=== PATIENT | female | born 1945 | race Caucasian/White ===

== ENCOUNTER → 2016-03-18 | Outpatient (CLI) | payer OTHER ==
[2016-03-18 14:25] LABS: HEMATOCRIT 42.6 % (37.0-47.0); HEMOGLOBIN 13.8 g/dL (12.0-16.0); MEAN CORPUSCULAR HEMOGLOBIN 34.2 PG (27-31); MEAN CORPUSCULAR HGB CONC 32.4 g/dL (33-37); MEAN PLATELET VOLUME 8.7 FL (7.4-12.2); RDW COEFFICIENT OF VARIATION 12.1 % (11.5-14.5); RED BLOOD COUNT 4.04 10^6/uL (4.20-5.40); WHITE BLOOD COUNT 7.13 10^3/uL (4.8-10.8)
[2016-03-18 15:19] LABS: BUN/CREATININE RATIO 13.75 (6-20); CALCIUM 9.4 mg/dL (8.7-10.7); CREATININE 0.8 mg/dL (0.50-1.20); LDL CHOLESTEROL,CALCULATED 70.6 mg/dL; POTASSIUM 4.2 meq/L (3.8-5.2)
== END ==
LOC: LAB 14:11
PROVIDERS: ATTEND Nurse Practitioner Family
DX: E78.00 Pure hypercholesterolemia, unspecified (principal); R53.83 Other fatigue
CPT/HCPCS: 36415; 80048; 80061; 84443; 85027

== ENCOUNTER → 2016-03-21 | Outpatient (CLI) | payer OTHER ==
--- NOTE | 2016-03-21 11:22 | DI ---
US CAROTIDS B/L,03/21/2016 8:58 AM: Clinical History: Carotid bruit Previous Exam: None at this facility. Findings: Multiple grayscale and color Doppler sonographic images are obtained through the carotid systems bila terally demonstrating shadowing plaque within the carotid bulbs bilaterally extending into the sports management intern al carotid arteries. This is worse on the right than the left. There is no elevated peak systolic velocity. There is some spectral broadening seen within the internal carotid artery. The ICA/CCA ratio measured 1.3 mL is antegrade flow within the vertebral arteries. The left carotid system demonstrates no elevated peak systolic velocity. The ICA/CCA ratio measured 1.3 and there is antegrade flow within the vertebral arteries. Impression: Peripheral vascular disease within the carotid bulbs without any hemodynamically significant stenosis .
== END ==
LOC: US 08:53
PROVIDERS: ATTEND Nurse Practitioner Family
DX: R01.1 Cardiac murmur, unspecified (principal); I73.89 Other specified peripheral vascular diseases
CPT/HCPCS: 93880

== ENCOUNTER → 2016-03-24 | Outpatient (CLI) | payer OTHER | LOC: LAB 08:38 | PROVIDERS: ATTEND Nurse Practitioner Family | DX: D53.9 Nutritional anemia, unspecified (principal) | CPT/HCPCS: 36415; 82607; 82746 ==

== ENCOUNTER → 2016-05-16 | Outpatient (CLI) | payer OTHER | LOC: LAB 10:19 | PROVIDERS: ATTEND Nurse Practitioner Family | DX: S71.111A Laceration without foreign body, right thigh, initial encounter (principal); R21 Rash and other nonspecific skin eruption | CPT/HCPCS: 87070; 87205; 87529 ==

== ENCOUNTER → 2016-07-19 | Outpatient (CLI) | payer OTHER ==
[2016-07-19 10:53] LABS: BUN/CREATININE RATIO 17.77 (6-20); CALCIUM 9.3 mg/dL (8.7-10.7); CHOL/HDL RATIO 3.79 RATIO (0-4.0); LDL CHOLESTEROL,CALCULATED 51.8 mg/dL; SERUM ALBUMIN 4.5 g/dL (3.5-4.8)
== END ==
LOC: LAB 10:31
PROVIDERS: ATTEND Obstetrics & Gynecology Gynecology
DX: E78.5 Hyperlipidemia, unspecified (principal); K21.9 Gastro-esophageal reflux disease without esophagitis; I10 Essential (primary) hypertension
CPT/HCPCS: 36415; 80053; 80061

== ENCOUNTER 2016-08-22 06:10 | Emergency (ER) | payer OTHER ==
[2016-08-22] MEDS ORDERED: diphenhydrAMINE 50 MG/1 ML VIAL IVP ONE (06:43)
[2016-08-22] MEDS ORDERED: Sodium Chloride 0.9% 1,000 ML PRIMARY IV ONE (06:43)
[2016-08-22] MEDS ORDERED: DEXAMETHASONE PF 10 MG/1 ML VIAL IV ONE (06:43)
[2016-08-22] MEDS ORDERED: Magnesium Sulfate 1gm (Premix) 1 GM in Dextrose 1 BAG IV ONE (06:43)
[2016-08-22] MEDS ORDERED: Acetaminophen 1000mg Inj 1,000 MG in Premix 1 BAG IV ONE (06:43)
[2016-08-22] MEDS ORDERED: Prochlorperazine Edisylate Inj 10mg/2ml vial IVP ONE (06:43)
[2016-08-22 06:49] VITALS: TEMP 96.3
--- NOTE | 2016-08-22 06:52 | PDOC ---
Headache HPI - General Chief Complaint: Cough / URI Stated Complaint: lt. head congestion Date Seen by Provider: 08/22/16 Time Seen by Provider: 06:46 Source: POSITIVE: Patient Exam Limitations: POSITIVE: No limitations Nurse's Notes Reviewed & Considered: Yes - History of Present Illness Initial Comments: Very pleasant 71-year-old female with a chief complaint of left-sided headache and maxillofacial sinus pain. Patient has had escalating left-sided sinus pain and headache for one week. She states the pain is now interfering with her activities of daily living. She denies any rhinorrhea, no foul odor, and no vision changes. She does have a headache, denies any sore throat, no chest pain or shortness of breath, no fever chills or sweats, no nausea vomiting or diarrhea, no abdominal pain, no hematuria dysuria, no rashes. She denies any dizziness or loss of balance, no unilateral weakness. Body Location Affected: REPORTS: Head, Face Timing: REPORTS: Gradual, Getting Worse Duration: >1 week Severity: Severe Quality: REPORTS: "Pain", Pressure Exacerbated by: REPORTS: Movement Any Prior Injuries Related to Current Complaint?: No - Patient Home Medications Home Medications: Home Medications Metoprolol Succinate 200 mg PO HS 05/23/11 Naproxen Sodium [Aleve] 440 mg PO PRN PRN 05/23/11 Ramipril [ALTACE] 10 mg PO HS 05/23/11 Simvastatin 40 mg PO HS 05/23/11 Aspirin [Aspir 81] 81 mg PO DAILY 10/13/13 Cholecalciferol (Vitamin D3) [Vitamin D] 1,000 unit PO DAILY 10/13/13 Folic Acid [Folvite Tab] 3,200 mg PO DAILY 10/13/13 Gabapentin [Neurontin Cap] 300 mg PO TID 10/13/13 Prochlorperazine Maleate [Compazine] 10 mg PO Q12H PRN 08/10/15 oxyCODONE/APAP 5/325 Tab [Percocet 5/325 Tab] 1 tab PO Q6H PRN 08/10/15 Ondansetron [Zofran Odt] 1 tab-cap PO q6-8 PRN #20 tab 09/01/15 Cyanocobalamin Inj [Vitamin B-12 Inj] 1,000 mcg IM MONTHLY 08/22/16 Lorazepam [Ativan] 0.5 mg PO TID PRN 08/22/16 Magnesium 250 mg PO DAILY 08/22/16 Tumeric Curcumin 1 tab PO DAILY 08/22/16 - Patient Allergies Allergies/Adverse Reactions: Allergies Allergy/AdvReac Type Severity Reaction Status Date / Time azithromycin Allergy NOT Verified 08/22/16 06:53 APPLICABLE pregabalin [From Lyrica] Allergy NOT Verified 08/22/16 06:53 APPLICABLE Past Medical History - heen HEENT History: Denies History Cardiovascular History: Hypertension, Hyperlipidemia Respiratory History: Denies History Gastrointestinal History: GERD, Gallbladder Disease Additional Gastrointestinal History: KERI, APPY Genitourinary History: Denies History Endocrine History: Denies History Musculoskeletal History: Back Pain Prosthesis or Implant: No Additional Musculoskeletal History: OF 03/14/12 PT HAS HAD 8 EPIDURALS FOR BULGING DISCS L5-S1, RHIZOTOMY, NERVE BLOCK. LEFT KNEE PAIN Neurological History: Denies History Blood Disorders: Denies History Psychiatric History: Denies History History of Sexually Transmitted Diseases: No Cancer History: Skin History of MDRO: No History of Other Communicable Diseases: No Alcohol Use: None Substance Use Type: None Previous Surgical History: Yes Type / Date of Surgery: CHOLECYSTECTOMY, APPENDECTOMY, TONSILLECTOMY, x4, LEFT KNEE SCOPE Anesthesia Reactions: No Malignant Hyperthermia: No ROS - Limitations ROS Limitations: No Limitations Constitution: REPORTS: Denies Symptoms Cardiovascular: REPORTS: Denies Cardiac Symptoms Respiratory: REPORTS: Denies Resp Symptoms Neurological: REPORTS: Headache Gastrointestinal: REPORTS: Denies GI Symptoms Endocrine: REPORTS: Denies Symptoms Musculoskeletal: REPORTS: Denies MS Symptoms Genitourinary: REPORTS: Denies Symptoms Eyes: REPORTS: Eye Pain (Left eye pain with ocular motion.) ENT: REPORTS: Denies Symptoms Skin: REPORTS: Denies Skin Symptoms Lympathic: REPORTS: Denies Lympathic Symptoms Immunologic: POSITIVE: Denies Symptoms Psychiatric: POSITIVE: Denies Psych Symptoms Headache Exam - General Appearance General Appearance: POSITIVE: Alert, Cooperative, No Evidence of Trauma, Moderate Distress - HEENT Head / Face: POSITIVE: Atraumatic, Normal Inspection, No Facial Swelling Eyes: POSITIVE: Inspection Normal, PERRL, EOM's Intact, Eyelids Uninjured, Conjunctivae Uninjured, No Nystagmus, No Globe Trauma, Sclera Normal Ears: POSITIVE: Ears Normal Inspection, Auricle Normal Nose: POSITIVE: Inspection Normal, No Apparent Trauma, Nares Normal, No CSF Leak Oropharynx: POSITIVE: External Inspection Nml, Pharynx Inspect. Nml, Airway Intact, Voice Normal, Moist Mucous Membranes, No Oral Injury, Lips Normal, Gums Normal, No Drooling, No Thrush Dental: POSITIVE: No Dental Injury - Pupil Size Pupil Size: 5 mm: Bilateral - Neck Neck: POSITIVE: Normal Inspection, Supple - Respiratory / CVS Respiratory / CVS: POSITIVE: Chest Non-Tender, No Respiratory Distress, Heart Sounds Normal, Regular Rate/Rhythm, Breath Sounds Normal - Abdomen Abdomen: Soft: (All Quadrants), Normal Bowel Sounds: (All Quadrants), Denies Tenderness: (All Quadrants), No Splenomegaly: (All Quadrants), No Hepatomegaly: (All Quadrants), No Guarding: (All Quadrants), No Rebound: (All Quadrants), No Palpable Pulse: (All Quadrants), No Palpabale Mass: (All Quadrants), No Distention: (All Quadrants), No Rigidity: (All Quadrants) - Skin Skin: POSITIVE: Intact, Normal Palpation - Extremities Extremity: Non-Tender: (All Extremities), Normal ROM: (All Extremities), Normal Inspection: (All Extremities), Pelvis Stable: (All Extremities) - Neuro / Psych Higher Functions: POSITIVE: Alert, Oriented x3, Normal Speech, Mood Appropriate , Affect Appropriate Cranial Nerves: POSITIVE: Normal As Tested, No Evidence of Acute CVA Cerebellar: POSITIVE: Normal As Tested Sensorimotor: POSITIVE: No Motor Deficits, No Sensory Deficits, Reflexes Normal Reflexes: Radial (R): 4+, Radial (L): 4+ Headache Progress - Results Reviewed by me Xrays/CTs/US Reviewed by me: Yes Discussed with Radiologist: Yes Lab Results Reviewed: Yes Lab Results:: Laboratory Results 08/22/16 Range/Units 07:00 WBC 8.33 (4.8-10.8) 10^3/uL RBC 3.98 L (4.20-5.40) 10^6/uL Hgb 13.8 (12.0-16.0) g/dL Hct 40.9 (37.0-47.0) % MCV 102.8 H (81-99) FL MCH 34.7 H (27-31) PG MCHC 33.7 (33-37) g/dL RDW Std Deviation 44.6 (39-50) fL RDW Coeff of Juan 11.9 (11.5-14.5) % Plt Count 281 (140-350) 10*3/uL MPV 9.3 (7.4-12.2) FL Immature Gran % (Auto) 0.2 (0-5) % Neut % (Auto) 68.7 (50-80) % Lymph % (Auto) 16.4 (10-50) % Titus % (Auto) 12.4 (5-15) % Eos % (Auto) 1.9 (0-8) % Baso % (Auto) 0.4 (0-1) % Immature Gran # (Auto) 0.02 10*3/UL Neut # (Auto) 5.72 10*3/UL Lymph # (Auto) 1.37 10*3/uL Titus # (Auto) 1.03 H (0.3-0.8) 10*3/UL Eos # (Auto) 0.16 10*3/UL Baso # (Auto) 0.03 10*3/UL WBC Morphology Comment Normal morphology (NORM) Plt Morphology Comment Normal morphology (NORM) RBC Morph Comment Normal morphology (NORM) PT 10.1 (9.7-11.4) secs INR 0.95 (0.00-5.90) N/A Sodium 142 (135-145) meq/L Potassium 4.1 (3.8-5.2) meq/L Chloride 105 (98-112) meq/L Carbon Dioxide 24 (23-33) meq/L Anion Gap 13 (5-20) BUN 9 (7-22) mg/dL Creatinine 0.6 (0.50-1.20) mg/dL Estimated GFR (>60 ml/min/1.73m(2)) BUN/Creatinine Ratio 15.00 (6-20) Glucose 109 (78-110) mg/dL Calculated Osmolality 293.0 H (267-292) mOsm/kg Calcium 9.7 (8.7-10.7) mg/dL Magnesium 2.0 (1.6-2.4) mg/dL Total Bilirubin 0.7 (0.3-1.2) mg/dL AST 21 (8-39) IU/L ALT 25 (9-52) IU/L Alkaline Phosphatase 51 (38-126) IU/L C-Reactive Protein 2.4 H (0.0-0.9) mg/dL Total Protein 7.6 (6.1-8.0) g/dL Albumin 4.4 (3.5-4.8) g/dL Globulin 3.3 (2.50-4.10) g/dL Albumin/Globulin Ratio 1.30 (1.3-2.0) mg/g - Patient's Progress Pain Medication Addressed: POSITIVE: Yes Re-Examine Time:: 08:52 Status: POSITIVE: Improved MDM / ED Course: Patient was evaluated, IV started, blood drawn and sent to the lab for studies, radiographic examination was obtained. ER course: Patient received an IV start with a liter of normal saline at 125 mL per hour, IV Tylenol, dexamethasone, magnesium, Benadryl, and Compazine. Her headache did improve. Findings: CBC is unremarkable, comprehensive metabolic panel is unremarkable, CRP is elevated over 2. CT scan maxillofacial shows no sinus disease area CT scan of her head shows no acute intracranial abnormalities. Assessment: Headache, improved. Plan: Discharge home, improve hydration particularly with our hot weather currently. Follow-up with primary care physician calling this afternoon for an appointment. - Consult Counseled: POSITIVE: Patient, Family, RE: Lab Results, RE: Radiology Results, RE : DX, RE: Need for F/U Patient Care Time - Estimated PCT Patient Care Time (In Minutes): 45 Vital Signs - Recent Vital Signs Vital Signs: Vital Signs (Last 8 hours) Temp Pulse Resp BP Pulse Ox 08/22/16 08:39 65 14 128/83 95 08/22/16 07:30 65 14 94 08/22/16 07:15 67 14 146/84 95 08/22/16 07:09 70 16 149/84 96 08/22/16 06:27 96.3 F L 71 16 162/81 95 - VS Reviewed Vital Signs Reviewed: Yes Discharge Clinical Impression: Headache Discharge Disposition: Discharged to Home Condition: Stable Patient Instructions Given at Discharge: General Headache (ED)
[2016-08-22] MEDS ORDERED: Magnesium Sulfate 1gm (Premix) 100 ML IV ONE (07:01)
[2016-08-22 07:20] LABS: BASOPHILS # (AUTO) 0.03 10*3/UL; BASOPHILS % (AUTO) 0.4 % (0-1); EOSINOPHILS # (AUTO) 0.16 10*3/UL; EOSINOPHILS % (AUTO) 1.9 % (0-8); HEMATOCRIT 40.9 % (37.0-47.0); HEMOGLOBIN 13.8 g/dL (12.0-16.0); LYMPHOCYTES # (AUTO) 1.37 10*3/uL; MEAN CORPUSCULAR HEMOGLOBIN 34.7 PG (27-31); MEAN CORPUSCULAR HGB CONC 33.7 g/dL (33-37); MEAN CORPUSCULAR VOLUME 102.8 FL (81-99); MEAN PLATELET VOLUME 9.3 FL (7.4-12.2); MONOCYTES # (AUTO) 1.03 10*3/UL (0.3-0.8); MONOCYTES % (AUTO) 12.4 % (5-15); NEUTROPHILS # (AUTO) 5.72 10*3/UL; NEUTROPHILS % (AUTO) 68.7 % (50-80); PLATELET MORPHOLOGY COMMENT NORMAL MORPHOLOGY (NORM); RBC MORPHOLOGY COMMENT NORMAL MORPHOLOGY (NORM); RED BLOOD COUNT 3.98 10^6/uL (4.20-5.40); WBC MORPHOLOGY COMMENT NORMAL MORPHOLOGY (NORM)
[2016-08-22 07:30] LABS: C-REACTIVE PROTEIN 2.4 mg/dL (0.0-0.9); CALCIUM 9.7 mg/dL (8.7-10.7); SERUM ALBUMIN 4.4 g/dL (3.5-4.8)
[2016-08-22 07:36] VITALS: RESP 14
--- NOTE | 2016-08-22 08:39 | DI ---
CT HEAD SCAN WITHOUT IV CONTRAST, 08/22/2016 6:43 AM : Clinical History: Headache. Previous Exam: None at this facility. Scans are obtained from the foramen magnum to the vertex without IV contrast. The 4th, 3rd, and lateral ventricles are of normal size, shape, position, and contour for the patient 's age. There are no abnormal areas of increased or decreased density. There is no evidence of an acu te hemorrhagic or bland infarct. There is moderate cerebellar and cerebral atrophy appropriate for th e patient's age. There are no extracerebral mantles or shift of the midline structures. Bone window e valuation is normal. The paranasal sinuses are normal. READIN. There is no evidence of an acute hemorrhagic or bland infarct. 2. Moderate cerebellar and cerebral atrophy.
--- NOTE | 2016-08-22 08:51 | DI ---
CT SCAN OF THE FACE WITHOUT AND WITH IV CONTRAST, 08/22/2016 6:43 AM : Clinical History: Maxillary and frontal sinus pain on the left side. Previous Exam: None at this facility. Scans are obtained from the upper neck to above the frontal sinuses without and with IV contrast. 65 ml of Isovue 300 was injected IV. The facial bones are normal. There is no facial soft tissue swelling or abnormal enhancing lesion. Th ere is no extraconal or intraconal abnormality on either side. No facial soft tissue mass is present. No lymphadenopathy is identified. The submandibular and the parotid glands are normal. The thyroid gland is not included in the field of interest. There are calcified plaques in the proximal right int ernal carotid artery and the origin of the right external carotid artery has a high-grade stenosis. S mall calcified plaques are present in the left carotid bulb and the proximal internal carotid artery with a mild stenosis of the origin of the left external carotid artery. The internal carotid arteries from their origins to the cavernous portions are normal. Both vertebral arteries are normal and they are codominant. There is no basilar tip aneurysm. No posterior communicating arteries are identified . The anterior communicating artery and the A1-A3 and M1-and M3 branches bilaterally are normal. The paranasal sinuses and the ostiomeatal complex are normal with the exception of small ronnie bullosa i n the middle turbinates. Scans through the temporal bones and mastoid air cells are normal. READING: Normal CT scan of the face without and with IV contrast. There is no evidence of sinusitis and the fa cial bones and soft tissues are normal.
== END 2016-08-22 09:30 | disposition home or self-care (01) ==
LOC: ER 06:10
DX: R51 Headache (principal); H57.12 Ocular pain, left eye; I10 Essential (primary) hypertension; E78.5 Hyperlipidemia, unspecified; Z79.82 Long term (current) use of aspirin
CPT/HCPCS: 70450; 70488; 80053; 83735; 85025; 85610; 86140; 96365; 96375; 99283 ×2; J0131; J0780; J1200; J1100; J3475; J7030

== ENCOUNTER 2018-06-01 09:04 | Observation (INO) ==
--- NOTE | 2018-06-01 09:40 | PDOC ---
General Adult HPI - General Chief Complaint: Neurological Complaints Stated Complaint: memory loss, walks funny, vomiting Date Seen by Provider: 06/01/18 Time Seen by Provider: 09:32 Source: POSITIVE: Patient, Spouse Exam Limitations: POSITIVE: Clinical condition Nurse's Notes Reviewed & Considered: Yes - History of Present Illness Initial Comment: This is a well-developed, well-nourished, 72-year-old female, who is brought in by her for confusion. Patient is confused and having difficult time remembering why she is here however she is able to correctly identify the date, the place, her date. Patient has had a headache, vomiting, abdominal pain, and recent esophageal dilatation. states that her symptoms began yesterday, that she called out to him during the night because of vomiting, and have gotten worse today. Presently she denies any fever chills or sweats, her headache is resolved, at this time she denies any nausea vomiting or diarrhea, no chest pain, no cough, no shortness of breath, no hematuria or dysuria. states that she has been having episodes of diarrhea yesterday. Have you received a tetanus shot in the past 10 years?: Yes Body Location Affected: REPORTS: Head, Chest, Abdomen Timing: REPORTS: Unknown Duration: Unknown Severity: Severe Quality: REPORTS: "Pain" Context: REPORTS: Recent Surgery Modifying Factors: improves with: Nothing Similar Symptoms Previously: No Recent Care Received: REPORTS: Surgery Any Prior Injuries Related to Current Complaint?: No - Patient Home Medications Home Medications: Home Medications Metoprolol Succinate 200 mg PO HS 05/23/11 Ramipril [ALTACE] 10 mg PO HS 05/23/11 Simvastatin 40 mg PO HS 05/23/11 Aspirin [Aspir 81] 81 mg PO DAILY 10/13/13 Cholecalciferol (Vitamin D3) [Vitamin D] 1,000 unit PO DAILY 10/13/13 Folic Acid 3,200 mg PO DAILY 10/13/13 Gabapentin [Neurontin] 400 mg PO TID 10/13/13 Ondansetron [Zofran Odt] 1 tab-cap PO q6-8 PRN #20 tab 09/01/15 Cyanocobalamin Inj [Vitamin B-12 Inj] 1,000 mcg IM MONTHLY 08/22/16 Lorazepam [Ativan] 0.5 mg PO TID PRN 08/22/16 Magnesium 250 mg PO DAILY 08/22/16 Famotidine [Pepcid] 20 mg PO DAILY #90 tab 05/25/18 HYDROcodone/APAP 5/325 Tab [[place] 5/325 Tab] 1 tab PO PRN PRN 06/01/18 Naproxen [Naprosyn] 500 mg PO PRN PRN 06/01/18 Prochlorperazine Maleate [Compazine] 10 mg PO BID 06/01/18 - Patient Allergies Allergies/Adverse Reactions: Allergies Allergy/AdvReac Type Severity Reaction Status Date / Time azithromycin Allergy NOT Verified 05/24/18 08:50 APPLICABLE pregabalin [From Lyrica] AdvReac NOT Verified 05/24/18 08:50 APPLICABLE Past Medical History - heen HEENT History: Denies History, Dentures/Partials Additional HEENT History: upper dentures Cardiovascular History: Hypertension, Hyperlipidemia Respiratory History: Denies History Gastrointestinal History: GERD Additional Gastrointestinal History: DYSPHAGIA Genitourinary History: Denies History Endocrine History: Denies History Musculoskeletal History: Arthritis, Osteoporosis, Back Pain Prosthesis or Implant: Yes (left wrist) Additional Musculoskeletal History: OF 03/14/12 PT HAS HAD 8 EPIDURALS FOR BULGING DISCS L5-S1, RHIZOTOMY, NERVE BLOCK. LEFT KNEE PAIN Neurological History: Denies History Blood Disorders: Denies History Psychiatric History: Denies History History of Sexually Transmitted Diseases: No Cancer History: Skin History of MDRO: No History of Other Communicable Diseases: No Alcohol Use: None In the Past 12 Months, Have Used or Abuse Any Substance: None Previous Surgical History: Yes Type / Date of Surgery: CHOLECYSTECTOMY, APPENDECTOMY, TONSILLECTOMY, x4, LEFT KNEE SCOPE/Rhizotomy and nerve block Anesthesia Reactions: No Malignant Hyperthermia: No Significant Family History: No pertinent family hx, Asthma, Heart disease, COPD, Diabetes, Hypertension ROS - Limitations ROS Limitations: Mental Impairment (Due to the patient's confusion further review of systems is unavailable. Review of systems strictly from husbands statements.) General Adult Exam - General Appearance General Appearance: POSITIVE: Alert, Cooperative, No Evidence of Trauma - HEENT HEENT: POSITIVE: Head Inspection Nml, Eyes Inspection Nml, Ears Inspection Nml, Nose Inspection Nml, Oral/Dental Inspect. Nml, Pharynx Inspect. Nml, PERRL, EOMI - Pupils Pupil Size: 5 mm: Bilateral - Neck Neck: POSITIVE: Normal Inspection, Thyroid Normal - Respiratory Respiratory: POSITIVE: No Respiratory Distress, Breath Sounds Normal, Chest Non- Tender - Cardiovascular Cardiovascular: POSITIVE: Regular Rate & Rhythm, No Murmur, No Gallop, PMI Normal Peripheral Pulses: Radial (L): 4+, Dorsalis-pedis (R): 4+, Dorsalis-pedis (L): 4+ - Abdomen Abdomen: Soft: (All Quadrants), Normal Bowel Sounds: (All Quadrants), Denies Tenderness: (All Quadrants), No Splenomegaly: (All Quadrants), No Hepatomegaly: (All Quadrants), No Guarding: (All Quadrants), No Rebound: (All Quadrants), No Palpable Pulse: (All Quadrants), No Palpabale Mass: (All Quadrants), No Distention: (All Quadrants), No Rigidity: (All Quadrants) - Back Back: POSITIVE: Normal Inspection - Skin Skin: POSITIVE: Normal Color, Warm, Dry, No Rash - Extremities Extremity: Non-Tender: (All Extremities), Normal ROM: (All Extremities), Normal Inspection: (All Extremities), Pelvis Stable: (All Extremities) - Neurological / Psychological Neurological: POSITIVE: Affect Apporpriate, Oriented X3, multimedia production assistant Normal As Tested, Motor Normal, Sensation Normal, Cognition Abnormality, Unsteady Gait Reflexes: Patellar (L): 4+, Radial (R): 4+, Radial (L): 4+, Bicep (R): 4+ Procedures - Laceration/Wound Repair Did patient have a laceration repair: No General Adult Progress - Results Reviewed by me Xrays/CTs/US Reviewed by me: Yes Discussed with Radiologist: Yes Lab Results Reviewed by Me: Yes Lab Results:: Laboratory Results 06/01/18 06/01/18 06/01/18 09:40 09:40 09:40 WBC 5.8 RBC 4.16 L Hgb 14.7 Hct 43.8 MCV 105 H MCH 35.4 H MCHC 33.6 RDW Coeff of Juan 12.5 Plt Count 249 MPV 7.0 L Neutrophils % (Manual) 66 Band Neutrophils % 0 Lymphocytes % (Manual) 26 Monocytes % (Manual) 4 Eosinophils % (Manual) 3 Basophils % (Manual) 1 Metamyelocytes % Not Reportable Myelocytes % Not Reportable Promyelocytes % Not Reportable Blast Cells Not Reportable WBC Morphology Comment Normal morphology Plt Morphology Comment Normal morphology RBC Morph Comment Normal morphology VBG pH VBG pCO2 VBG HCO3 VBG Base Excess Sodium 146 H Potassium 4.1 Chloride 103 Carbon Dioxide 26 Anion Gap 17 BUN 9 Creatinine 0.7 BUN/Creatinine Ratio 12.85 Glucose 112 H Calculated Osmolality 301.0 H Lactic Acid Calcium 9.5 Magnesium 2.0 Total Bilirubin 0.8 GGT 101 H AST 67 H ALT 38 Alkaline Phosphatase 66 Ammonia CK-MB (CK-2) Troponin I Handheld NT-Pro-B Natriuret Pep 187 H Total Protein 7.9 Albumin 4.7 Globulin 3.2 Albumin/Globulin Ratio 1.40 Amylase 70 Lipase 59 TSH Ur Collection Type Clean catch urine Urine Color Yellow Urine Clarity Clear Urine pH 7.0 Ur Specific Ty Ty 1.010 U Specif Grav (Refrac) Urine Protein Negative Urine Glucose (UA) Negative Urine Ketones Negative Urine Occult Blood Negative Urine Nitrate Negative Urine Bilirubin Negative Urine Urobilinogen 0.2 Ur Leukocyte Esterase Negative Ur Culture Indicated? Culture not set Salicylates Urine Opiates Screen Ur Buprenorphine Ur Oxycodone Screen Urine Methadone Screen Ur Propoxyphene Screen Acetaminophen Barbiturate Screen U Tricyclic Antidepress Phencyclidine Screen Amphetamines Screen U Methamphetamines Scrn Benzodiazepines Screen Cocaine Screen U Marijuana (THC) Screen Serum Alcohol 06/01/18 06/01/18 06/01/18 09:40 09:40 09:40 WBC RBC Hgb Hct MCV MCH MCHC RDW Coeff of Juan Plt Count MPV Neutrophils % (Manual) Band Neutrophils % Lymphocytes % (Manual) Monocytes % (Manual) Eosinophils % (Manual) Basophils % (Manual) Metamyelocytes % Myelocytes % Promyelocytes % Blast Cells WBC Morphology Comment Plt Morphology Comment RBC Morph Comment VBG pH VBG pCO2 VBG HCO3 VBG Base Excess Sodium Potassium Chloride Carbon Dioxide Anion Gap BUN Creatinine BUN/Creatinine Ratio Glucose Calculated Osmolality Lactic Acid 1.9 Calcium Magnesium Total Bilirubin GGT AST ALT Alkaline Phosphatase Ammonia 13 CK-MB (CK-2) 0.70 Troponin I Handheld NT-Pro-B Natriuret Pep Total Protein Albumin Globulin Albumin/Globulin Ratio Amylase Lipase TSH 3.14 Ur Collection Type Urine Color Urine Clarity Urine pH Ur Specific Ty [place] U Specif Grav (Refrac) Urine Protein Urine Glucose (UA) Urine Ketones Urine Occult Blood Urine Nitrate Urine Bilirubin Urine Urobilinogen Ur Leukocyte Esterase Ur Culture Indicated? Salicylates Urine Opiates Screen Ur Buprenorphine Ur Oxycodone Screen Urine Methadone Screen Ur Propoxyphene Screen Acetaminophen Barbiturate Screen U Tricyclic Antidepress Phencyclidine Screen Amphetamines Screen U Methamphetamines Scrn Benzodiazepines Screen Cocaine Screen U Marijuana (THC) Screen Serum Alcohol 06/01/18 06/01/18 06/01/18 09:40 10:00 10:02 WBC RBC Hgb Hct MCV MCH MCHC RDW Coeff of Juan Plt Count MPV Neutrophils % (Manual) Band Neutrophils % Lymphocytes % (Manual) Monocytes % (Manual) Eosinophils % (Manual) Basophils % (Manual) Metamyelocytes % Myelocytes % Promyelocytes % Blast Cells WBC Morphology Comment Plt Morphology Comment RBC Morph Comment VBG pH 7.38 VBG pCO2 43 L VBG HCO3 25 VBG Base Excess 0 Sodium Potassium Chloride Carbon Dioxide Anion Gap BUN Creatinine BUN/Creatinine Ratio Glucose Calculated Osmolality Lactic Acid Calcium Magnesium Total Bilirubin GGT AST ALT Alkaline Phosphatase Ammonia CK-MB (CK-2) Troponin I Handheld 0.010 NT-Pro-B Natriuret Pep Total Protein Albumin Globulin Albumin/Globulin Ratio Amylase Lipase TSH Ur Collection Type Urine Color Urine Clarity Urine pH Ur Specific Ty Ty U Specif Grav (Refrac) Urine Protein Urine Glucose (UA) Urine Ketones Urine Occult Blood Urine Nitrate Urine Bilirubin Urine Urobilinogen Ur Leukocyte Esterase Ur Culture Indicated? Salicylates < 1.0 Urine Opiates Screen Ur Buprenorphine Ur Oxycodone Screen Urine Methadone Screen Ur Propoxyphene Screen Acetaminophen < 10.0 Barbiturate Screen U Tricyclic Antidepress Phencyclidine Screen Amphetamines Screen U Methamphetamines Scrn Benzodiazepines Screen Cocaine Screen U Marijuana (THC) Screen Serum Alcohol < 10 06/01/18 12:15 WBC RBC Hgb Hct MCV MCH MCHC RDW Coeff of Juan Plt Count MPV Neutrophils % (Manual) Band Neutrophils % Lymphocytes % (Manual) Monocytes % (Manual) Eosinophils % (Manual) Basophils % (Manual) Metamyelocytes % Myelocytes % Promyelocytes % Blast Cells WBC Morphology Comment Plt Morphology Comment RBC Morph Comment VBG pH VBG pCO2 VBG HCO3 VBG Base Excess Sodium Potassium Chloride Carbon Dioxide Anion Gap BUN Creatinine BUN/Creatinine Ratio Glucose Calculated Osmolality Lactic Acid Calcium Magnesium Total Bilirubin GGT AST ALT Alkaline Phosphatase Ammonia CK-MB (CK-2) Troponin I Handheld NT-Pro-B Natriuret Pep Total Protein Albumin Globulin Albumin/Globulin Ratio Amylase Lipase TSH Ur Collection Type Clean catch urine Urine Color Urine Clarity Urine pH Ur Specific Ty Ty U Specif Grav (Refrac) 1.010 Urine Protein Urine Glucose (UA) Urine Ketones Urine Occult Blood Urine Nitrate Urine Bilirubin Urine Urobilinogen Ur Leukocyte Esterase Ur Culture Indicated? Salicylates Urine Opiates Screen Positive H Ur Buprenorphine Negative Ur Oxycodone Screen Negative Urine Methadone Screen Negative Ur Propoxyphene Screen Negative Acetaminophen Barbiturate Screen Negative U Tricyclic Antidepress Negative Phencyclidine Screen Negative Amphetamines Screen Negative U Methamphetamines Scrn Negative Benzodiazepines Screen Negative Cocaine Screen Negative U Marijuana (THC) Screen Negative Serum Alcohol CBC and BMP: 06/01/18 09:40 06/01/18 09:40 EKG Interpreted/Reviewed By Me:: Yes (EKG shows sinus rhythm, 67 bpm, no ST changes.) EKG Interpretation:: POSITIVE: Normal Sinus Rhythm, Normal Rate, Normal Intervals, Normal Loop, Normal QRS, Normal ST/T - Patient's Progress Pain Medication Addressed: POSITIVE: Not Applicable Quality Measure Initiative: CP/AMI: POSITIVE: EKG Quality Measure Initiative: CAP: POSITIVE: CXR or CT CVA/Syncope: POSITIVE: EKG - Consult Consult (If Yes, Name of Consulting MD & Time Called): Yes (Dr. Bennett) Consulting MD will see pt:: [place]IVE[place] [facility] [place] Counseled: POSITIVE: Patient, Family, RE: Lab Results, RE: Radiology Results, RE: DX, RE: Need for F/U Patient Care Time - Estimated PCT Patient Care Time (In Minutes): 60 Vital Signs - Recent Vital Signs Vital Signs: Vital Signs (Last 8 hours) Temp Pulse Resp BP Pulse Ox 06/01/18 09:34 97 F 85 18 185/85 95 - VS Reviewed Vital Signs Reviewed: Yes Discharge Clinical Impression: Confusion, Headache, Hypoxia, Opiate drug detected in blood Discharge Disposition: Admit to Inpatient Condition: Fair Follow Up With: MERLYN WILSON [Primary Care Provider] - Date Decision to Admit to Inpatient: 06/01/18 Time Decision to Admit to Inpatient: 13:00
--- NOTE | 2018-06-01 09:51 | EKG ---
[address] [address] Measurements Intervals [place] Rate: 67 P: 73 IA: 166 QRS: -6 QRSD: 92 T: 45 QT: 397 QTc: 412 Interpretive Statements SINUS RHYTHM Compared to ECG 11/23/2015 10:06:22 No significant changes Electronically Signed On 06-01-18 14:55:44 MDT by Dru Leslie [email or web address]
[2018-06-01 09:58] LABS: BLOOD UREA NITROGEN 9 mg/dL (7-22); BUN/CREATININE RATIO 12.85 (6-20); GAMMA GLUTAMYL TRANSPEPTIDASE 101 IU/L (8-78); LIPASE 59 IU/L (23-300); SERUM ALBUMIN 4.7 g/dL (3.5-4.8)
[2018-06-01 09:59] LABS: Hematocrit [HCT] 43.8 % (37.0-47.0); Hemoglobin [HGB] 14.7 g/dL (12.0-16.0); MEAN CORPUSCULAR HEMOGLOBIN 35.4 PG (27-31); MEAN CORPUSCULAR VOLUME 105 FL (81-99); RED BLOOD COUNT 4.16 10^6/uL (4.20-5.40)
[2018-06-01 10:00] LABS: MEAN CORPUSCULAR HGB CONC 33.6 g/dL (33-37)
[2018-06-01 10:01] LABS: BAND NEUTROPHILS % 0 % (0-10); MONOCYTES % (MANUAL) 4 % (0-12); NEUTROPHILS % (MANUAL) 66 % (50-80)
[2018-06-01 10:02] LABS: BASOPHILS % (MANUAL) 1 % (0-1); EOSINOPHILS % (MANUAL) 3 % (0-8); PLATELET MORPHOLOGY COMMENT NORMAL MORPHOLOGY (NORM); RBC MORPHOLOGY COMMENT NORMAL MORPHOLOGY (NORM); WBC MORPHOLOGY COMMENT NORMAL MORPHOLOGY (NORM)
[2018-06-01 10:18] LABS: VENOUS PH 7.38 (7.32-7.42)
[2018-06-01 10:32] LABS: SALICYLATE < 1.0 mg/dl (0-20)
--- NOTE | 2018-06-01 11:12 | DI ---
CT Head WO Contrast 06/01/2018 9:40 AM [place] [facility] [place] [place] Comparison: 08/22/2016. Procedure: Noncontrast CT images through the head were reviewed. Findings: There is no acute intracranial hemorrhage or extra-axial fluid collection. The ventricles a re symmetric. There is moderate global atrophy which is within the expected range for age. Decreased attenuation in the periventricular and subcortical white matter is consistent with mild chronic small vessel ischemic changes with evidence of remote left frontal infarct. There is otherwise normal vizcarra -white differentiation without focal mass or mass-effect. The visualized portions of the paranasal si nuses and mastoid air cells are clear. Review of the osseous structures demonstrate no depressed calv arial fracture or aggressive osseous lesion. The facial soft tissues are unremarkable. There are violetta re degenerative changes of the left temporomandibular joint. Impression: 1. No acute intracranial findings. 2. Age related senescent changes as above.
--- NOTE | 2018-06-01 11:23 | DI ---
CT Chest W Contrast 06/01/2018 9:40 AM History[place] [facility] [place], s/p esophagel dilatation Comparison: Chest CT from 10/18/2013. Technique: Contrast enhanced CT of the chest was performed after the administration of 70 mL of Isovu e intravenous contrast. Axial, coronal, and sagittal images were obtained from the thoracic inlet thr ough the lung bases. Findings: There is no dense consolidation, pneumothorax, or pleural effusion. There is biapical pleur al thickening versus scarring. A pneumatocele is noted along the oblique fissure in the right lung. N o pulmonary nodules are noted. Mild bronchial thickening is present without endobronchial lesion. There is no mediastinal or hilar l ymphadenopathy. The aorta and pulmonary vessels demonstrate normal course and caliber. There are athe romatous aortic and coronary artery calcifications. Heart size is within normal limits with no perica rdial effusion. The thyroid exhibits normal CT morphology. Osseous structures are unremarkable for age. Impression: 1. There is no dense consolidation, pleural effusion, or pneumothorax. 2. There is mild diffuse bronchial wall thickening without endobronchial lesion. This is a non-specif ic finding that is most commonly seen in the setting of acute or chronic bronchitis, as well as react rik airways disease.
--- NOTE | 2018-06-01 11:31 | DI ---
CT Abdomen/Pelvis W Contrast 06/01/2018 9:40 AM History: [facility] ^vomiting Comparison: None. Technique: Imaging was performed with a multi-detector CT scanner. Data acquisition was obtained from the dome of the diaphragm through the pubic symphysis without oral contrast and after the uneventful administration of 70 mL of Isovue intravenous contrast material. Multiplanar reformations were perfo rmed. Findings: The gallbladder is decompressed or absent. There is normal CT appearance of the liver, adre nal glands, spleen, kidneys, and pancreas. Hollow viscus organs demonstrate normal course and caliber . The uterus is absent. The adnexa are unremarkable, though better evaluated with pelvic ultrasound. There is no free intraperitoneal air or fluid. No abdominopelvic lymphadenopathy is present. Vascular structures are intact with atheromatous aortoiliac calcifications. There is no inguinal or abdominal wall hernia. There is multilevel degenerative disc disease with grade 1 anterolisthesis of L5 on S1. No pars defec ts are present. Impression: 1. No CT evidence of acute intra-abdominal or pelvic pathology.
[2018-06-01] MEDS ORDERED: ACETAMINOPHEN 500 MG TABLET PO ONE ×2 (11:57→12:01)
[2018-06-01] MEDS ORDERED: ONDANSETRON 4 MG/2 ML VIAL IVP ONE (12:22)
[2018-06-01 12:25] LABS: BILIRUBIN,URINE NEGATIVE (NEG); CLARITY,URINE CLEAR (CLEAR); COLOR,URINE YELLOW (Y); GLUCOSE, URINE (UA) NEGATIVE (NEG); OCCULT BLOOD,URINE NEGATIVE (NEG); PROTEIN,URINE NEGATIVE (NEG); UROBILINOGEN,URINE 0.2 EU/dL (0.2)
[2018-06-01] MEDS ORDERED: ONDANSETRON 4 MG/2 ML VIAL ONE (12:25)
[2018-06-01 12:26] LABS: URINE SAMPLE TYPE CLEAN CATCH URINE
[2018-06-01 12:47] LABS: AMPHETAMINE SCREEN NEGATIVE (NEG); CANNABINOID SCREEN,URINE NEGATIVE (NEG); COCAINE SCREEN NEGATIVE (NEG); METHADONE URINE SCREEN NEGATIVE (NEG); METHAMPHETAMINES SCREEN,URINE NEGATIVE (NEG); OPIATE SCREEN,URINE POSITIVE (NEG); URINE SAMPLE TYPE CLEAN CATCH URINE
[2018-06-01] MEDS ORDERED: Lidocaine Inj 1% 20 ML ONE (13:26)
[2018-06-01] MEDS: ONDANSETRON 4 MG/2 ML VIAL IVP ONE ×2 (15:01→20:48)
--- NOTE | 2018-06-01 15:48 | PDOC ---
HPI - History of Present Illness Date of Service: 06/01/18 Time of Service: 15:30 Chief Complaint: Confusion, vomiting History of Present Illness: This is a 72 years old female with medical history significant for history of hypertension, hypercholesterolemia, history of chronic back pain, recent esophageal dilatation who was brought to the hospital by her because of vomiting and confusion. According to the 2 weeks ago she started to have diarrhea they were in [place] and she came home she saw a physician at the urgent care clinic had some test but did not get the results of it till now. No new medication were prescribed, she also had esophageal dilatation on the in our hospital according to her. On Monday she had neck pain she saw Dr. Friedman her primary who he gave her a Toradol shot and she was prescribed baclofen. Yesterday morning she was hazy according to the , not her usual self. She did not eat much yesterday and she didn't take her medication except that she took a pain medication because she was complaining from pain all over her body according to her in addition she took some Zofran because of the vomiting. This morning he brought her to the ER and on their way here she started to vomit and was complaining from headache. In the ER evaluation mostly negative she had an LP results were pending. She was admitted for further evaluation. The patient her self is somewhat a poor historian but she is with it she knows the day, the month and the year. She knows where she is at. She know that her says that she was confused. She is not sure about herself being confused. She is denying complaints now except some mild headache. This was in the frontal area. Regarding the baclofen she said she didn't take it until today. I'm not sure about the accuracy of that. Past Medical History Medical History: 1. History of hypertension. 2. History of hypercholesterolemia. 3. History of neuropathy. 4. History of chronic back pain. 5. History of esophageal stricture that needed dilatation recently Surgical History: 1. History of appendectomy. 2. History of hysterectomy. 3. History of cholecystectomy. 4. History of rhizotomy Past Social History: Used to smoke doesn't smoke anymore, doesn't drink known drugs. Lives with her . Tobacco Use: Former Smoker In the Past 12 Months, Have Used or Abuse Any of the Following Substance: None Medication / Allergies Home Medications: Home Medications Medication Instructions Recorded Confirmed Type Metoprolol Succinate 200 mg PO HS 05/23/11 06/01/18 History Ramipril [ALTACE] 10 mg PO HS 05/23/11 06/01/18 History Simvastatin 40 mg PO HS 05/23/11 06/01/18 History Aspirin [Aspir 81] 81 mg PO DAILY 10/13/13 06/01/18 History Cholecalciferol (Vitamin D3) 1,000 unit PO DAILY 10/13/13 06/01/18 History [Vitamin D] Folic Acid 3,200 mg PO DAILY 10/13/13 06/01/18 History Gabapentin [Neurontin] 400 mg PO TID 10/13/13 06/01/18 History Ondansetron [Zofran Odt] 1 tab-cap PO q6-8 PRN #20 tab 09/01/15 06/01/18 History Cyanocobalamin Inj [Vitamin B-12 1,000 mcg IM MONTHLY 08/22/16 06/01/18 History Inj] Lorazepam [Ativan] 0.5 mg PO TID PRN 08/22/16 06/01/18 History Magnesium 250 mg PO DAILY 08/22/16 06/01/18 History Famotidine [Pepcid] 20 mg PO DAILY #90 tab 05/25/18 06/01/18 Rx HYDROcodone/APAP 5/325 Tab [[place] 1 tab PO PRN PRN 06/01/18 06/01/18 History 5/325 Tab] Naproxen [Naprosyn] 500 mg PO PRN PRN 06/01/18 06/01/18 History Prochlorperazine Maleate 10 mg PO BID 06/01/18 06/01/18 History [Compazine] Allergies/Adverse Reactions: Allergies Allergy/AdvReac Type Severity Reaction Status Date / Time azithromycin Allergy NOT Verified 05/24/18 08:50 APPLICABLE pregabalin [From Lyrica] AdvReac NOT Verified 05/24/18 08:50 APPLICABLE Review of Systems - Review of Systems All Systems: Reviewed & No Additional Complaints Except as Stated Exam - Vitals Vital Signs: Vital Signs Temperature 97 F Temperature Source Temporal Artery Scan Pulse Rate [Pulse Oximeter] 85 Respiratory Rate 18 Blood Pressure [Left Arm] 185/85 Pulse Ox 95 Oxygen Delivery Method Room Air Height 5 ft 2 in Weight 145 lb - General General Appearance: No Acute Distress, Cooperative - Head Head Exam: Normal Inspection - Eye Eye Exam: POSITIVE: Normal Appearance - ENT ENT Exam: POSITIVE: Normal Exam - Neck Neck Exam: Normal Inspection - Respiratory Respiratory Exam: POSITIVE: Clear to Auscultation - Bilaterally - Cardiovascular Cardiovascular Exam: POSITIVE: RRR - GI/Abdominal GI/Abdominal Exam: POSITIVE: Normal Bowel Sounds, Non Tender, Non Distended, Soft, No Organomegaly - Rectal Rectal Exam: POSITIVE: Deferred - External Exam: POSITIVE: Deferred - Extremities Extremities Exam: POSITIVE: Normal Inspection - Back Back Exam: POSITIVE: Normal Inspection - Neurological Neurological Exam: POSITIVE: Alert, Oriented x 3, CN II-XII Intact, No Facial Droop, Speech Intact / Clear, Moves All Extremities Equally - Psychiatric Psychiatric Exam: POSITIVE: Normal Affect - Integumentary Integumentary Exam: POSITIVE: Normal Color Results - Labs CBC and BMP: 06/01/18 09:40 06/01/18 09:40 - EKG Data Rate: Normal EKG Shows Normal: Sinus Rhythm - EKG Data When Compared to Previous EKG(s) There Are: Other (EKG showed normal sinus rhythm) - Imaging Status: Report Reviewed by Me (CT abdomen No CT evidence of acute intra- abdominal or pelvic pathology. CT chest 1. There is no dense consolidation, pleural effusion, or pneumothorax. 2. There is mild diffuse bronchial wall thickening without endobronchial lesion. This is a non-specific finding that is most commonly seen in the setting of acute or chronic bronchitis, as well as reactive airways disease. CT head 1. No acute intracranial findings. 2. Age related senescent changes as above.) Assessment and Plan - Patient Problems (1) Confusion Current Visit: Yes Status: Acute Comment: Question medication related will wait for the CSF evaluation. I think will order an MRI of her brain also. Will write for IV fluids and watch her overnight. We'll hold the gabapentin for now. Code(s): R41.0 - Disorientation, unspecified (2) Hypertension Current Visit: Yes Status: Acute Comment: Continue metoprolol but hold the enalapril for now Code(s): I10 - Essential (primary) hypertension (3) Hypercholesterolemia Current Visit: Yes Status: Acute Comment: Same medications Code(s): E78.00 - Pure hypercholesterolemia, unspecified (4) History of neuropathy Current Visit: Yes Status: Acute Comment: I think we'll hold off on the gabapentin for now. Code(s): Z86.69 - Personal history of other diseases of the nervous system and sense organs (5) Vomiting Current Visit: Yes Status: Acute Comment: Question medication related, will treat her symptomatically. Will write for IV fluids, Zofran and Protonix. Code(s): R11.10 - Vomiting, unspecified
[2018-06-01] MEDS ORDERED: CALCIUM CARBONATE 500 MG (TUMS) CHEWABLE TABLET PO PRN (15:51)
[2018-06-01] MEDS ORDERED: ONDANSETRON 4 MG/2 ML VIAL IVP PRN (15:51)
[2018-06-01] MEDS ORDERED: LIDOCAINE W/ SODIUM BICARB 0.5 ML SYR SUBD PRN (15:51)
[2018-06-01] MEDS: Metoclopramide Inj 10 MG/2 ML VIAL IVP ONE ×2 (17:06→17:11)
[2018-06-01] MEDS: Lactated Ringers 1,000 ML PRIMARY IV SCH (18:20)
[2018-06-01] MEDS: PANTOPRAZOLE IV 40 MG VIAL IVP SCH (18:26)
--- NOTE | 2018-06-01 18:30 | DI ---
MRI BRAIN SCAN WITHOUT IV CONTRAST, 06/01/2018 3:40 PM: Clinical History: Confusion. Prior Exam: None at this facility. Comparison Exam: Noncontrast CT head scan, 06/01/2018. Sequences: Sagittal T1; Axial JOSE T2 and FLAIR. Axial diffusion weighted images with ADC mapping. 4th Ventricle: Normal. 3rd Ventricle: Mildly dilated, but normal for age. Lateral Ventricles: Mildly dilated, but normal for age. Sella: Normal size and normal pituitary gland. Cerebrum: No acute hemorrhagic or bland infarct. No significant small vessel ischemic disease. Cerebellum: Normal. No cerebellopontine angle mass. Cerebellar Tonsils: Normal position. Brainstem: Normal. Diffusion Weighted Imaging: Normal. Atrophy: Moderately severe cerebral and moderate cerebellar atrophy. Extracerebral Mantles/Midline Shift: No extracerebral mantle or dural lesion. No midline shift. Sinuses: Normal. Readin. No acute hemorrhagic or bland infarct. No significant small vessel ischemic disease. 2. Moderately severe cerebral and moderate cerebellar atrophy.
[2018-06-01] MEDS: ACETAMINOPHEN 325 MG TABLET PO PRN (20:11)
[2018-06-01] MEDS ORDERED: Metoclopramide Inj 10 MG/2 ML VIAL IVP PRN (20:55)
[2018-06-01] MEDS ORDERED: METOPROLOL SUCCINATE 100 MG SR 24H TABLET PO SCH (21:00)
[2018-06-01] MEDS ORDERED: Simvastatin Tab 40 MG TAB PO SCH (21:00)
[2018-06-02 05:20] LABS: BASOPHILS # (AUTO) 0.02 10*3/UL; BASOPHILS % (AUTO) 0.4 % (0-1); EOSINOPHILS # (AUTO) 0.13 10*3/UL; EOSINOPHILS % (AUTO) 2.4 % (0-8); Hematocrit [HCT] 40.4 % (37.0-47.0); Hemoglobin [HGB] 13.5 g/dL (12.0-16.0); LYMPHOCYTES # (AUTO) 1.76 10*3/uL; MEAN CORPUSCULAR HEMOGLOBIN 34.4 PG (27-31); MEAN CORPUSCULAR HGB CONC 33.4 g/dL (33-37); MEAN CORPUSCULAR VOLUME 102.8 FL (81-99); MEAN PLATELET VOLUME 9.1 FL (7.4-12.2); MONOCYTES # (AUTO) 0.67 10*3/UL (0.3-0.8); MONOCYTES % (AUTO) 12.6 % (5-15); NEUTROPHILS # (AUTO) 2.73 10*3/UL; NEUTROPHILS % (AUTO) 51.5 % (50-80); RED BLOOD COUNT 3.93 10^6/uL (4.20-5.40)
[2018-06-02] MEDS: Lactated Ringers 1,000 ML PRIMARY IV SCH (05:26)
[2018-06-02] MEDS: PANTOPRAZOLE IV 40 MG VIAL IVP SCH (05:29)
[2018-06-02 05:53] LABS: BLOOD UREA NITROGEN 8 mg/dL (7-22); BUN/CREATININE RATIO 11.42 (6-20); SERUM ALBUMIN 3.9 g/dL (3.5-4.8)
[2018-06-02 06:33] LABS: PLATELET MORPHOLOGY COMMENT NORMAL MORPHOLOGY (NORM); RBC MORPHOLOGY COMMENT NORMAL MORPHOLOGY (NORM); WBC MORPHOLOGY COMMENT NORMAL MORPHOLOGY (NORM)
[2018-06-02] MEDS: ACETAMINOPHEN 325 MG TABLET PO PRN (07:27)
[2018-06-02] MEDS ORDERED: ASPIRIN EC 81 MG TABLET PO SCH (09:00)
[2018-06-02 09:15] VITALS: RESP 16
[2018-06-02 12:46] VITALS: BP 160/75; TEMP 97.5; O2SAT 96
--- NOTE | 2018-06-02 13:54 | DCSUMMARY ---
Hospitalization Summary Admit Date: 06/01/2018 Discharge Date: 06/02/18 Hospital Course: Discharge diagnoses 1. Episode of vomiting resolved, possible gastritis versus medication side effect 2. Confusion resolved probably medication related 3. History of hypertension 4. History of hypercholesterolemia 5. History of chronic back pain 6. History of neuropathy Hospital course This is a 72 years old female with medical history significant for history of hypertension, hypercholesterolemia, history of chronic back pain, recent EGD who was brought to the hospital by her because of vomiting and confusion. According to the 2 weeks ago she started to have diarrhea they were in [place] and she came home she saw a physician at the urgent care clinic had some test but did not get the results of it till now. No new medication were prescribed, she also had EGD on the in our hospital according to her. On Monday she had neck pain she saw Dr. Friedman her primary who he gave her a Toradol shot and she was prescribed baclofen. Yesterday morning she was hazy according to the , not her usual self. She did not eat much yesterday and she didn't take her medication except that she took a pain medication because she was complaining from pain all over her body according to her in addition she took some Zofran because of the vomiting. The morning of admission he brought her to the ER and on their way here she started to vomit and was complaining from headache. In the ER evaluation mostly negative she had an LP She was admitted for further evaluation. The patient her self is somewhat a poor historian but she is with it she knows the day, the month and the year. She knows where she is at. She know that her says that she was confused. She is not sure about herself being confused. She is denying complaints now except some mild headache. This was in the frontal area. Regarding the baclofen she said she didn't take it until today. I'm not sure about the accuracy of that. The LP that she had showed some nonspecific abnormalities with white count of 7 and 100% neutrophils and protein was 62, this may be secondary to non infectious reason. Culture was negative on the first day, blood culture was also negative on the first day. PCR for pathogens were also negative. I did discuss it with infectious disease they agreed We treat symptomatically> which we did with fluids Protonix. She takes Naprosyn and the EGD that she had with Dr. Rubio showed hemorrhagic gastritis. Her symptoms may be secondary to medication. On the day of discharge she felt better she tolerated diet and was no vomiting. She walked around did well. She was not confused. We thought she could be discharged home. We DC'd Naprosyn, Percocet and baclofen. She need follow-up with her primary. Discharge instruction Diet regular Activity as tolerated Medications Current Medication(s) Medication Instructions Recorded Confirmed Type Metoprolol Succinate 200 mg PO HS 05/23/11 06/01/18 History Ramipril [ALTACE] 10 mg PO HS 05/23/11 06/01/18 History Simvastatin 40 mg PO HS 05/23/11 06/01/18 History Aspirin [Aspir 81] 81 mg PO DAILY 10/13/13 06/01/18 History Cholecalciferol (Vitamin D3) 1,000 unit PO DAILY 10/13/13 06/01/18 History [Vitamin D] Folic Acid 3,200 mg PO DAILY 10/13/13 06/01/18 History Gabapentin [Neurontin] 400 mg PO TID 10/13/13 06/01/18 History Ondansetron [Zofran Odt] 1 tab-cap PO q6-8 PRN #20 tab 09/01/15 06/01/18 History Cyanocobalamin Inj [Vitamin B-12 1,000 mcg IM MONTHLY 08/22/16 06/01/18 History Inj] Lorazepam [Ativan] 0.5 mg PO TID PRN 08/22/16 06/01/18 History Magnesium 250 mg PO DAILY 08/22/16 06/01/18 History Famotidine [Pepcid] 20 mg PO DAILY #90 tab 05/25/18 06/01/18 Rx Prochlorperazine Maleate 10 mg PO BID 06/01/18 06/01/18 History [Compazine] Follow-up with PCP in 1-2 weeks Condition at discharge was stable for discharge Exam - Vitals Vital Signs: Vital Signs Temperature 97.5 F Temperature Source Temporal Artery Scan Pulse Rate [Pulse Oximeter] 82 Pulse Rate 65 Respiratory Rate 16 Blood Pressure [Right Arm] 152/61 Blood Pressure [Left Arm] 160/75 Pulse Ox 96 Oxygen Delivery Method Room Air Height 5 ft 1 in Weight 147 lb 12.8 oz - General General Appearance: No Acute Distress - Head Head Exam: Normal Inspection - Eye Eye Exam: POSITIVE: Normal Appearance - ENT ENT Exam: POSITIVE: Normal Exam - Neck Neck Exam: Normal Inspection - Respiratory Respiratory Exam: POSITIVE: Clear to Auscultation - Bilaterally - Cardiovascular Cardiovascular Exam: POSITIVE: RRR - GI/Abdominal GI/Abdominal Exam: POSITIVE: Normal Bowel Sounds, Non Tender, Non Distended, Soft, No Organomegaly - External Exam: POSITIVE: Deferred Exam: POSITIVE: Deferred - Extremities Extremities Exam: POSITIVE: Normal Inspection - Back Back Exam: POSITIVE: Normal Inspection - Neurological Neurological Exam: POSITIVE: Alert, Oriented x 3, Normal Gait, No Facial Droop, Speech Intact / Clear, Moves All Extremities Equally - Psychiatric Psychiatric Exam: POSITIVE: Normal Affect Patient Problems - Patient Problem List (1) Confusion Status: Acute Code(s): R41.0 - Disorientation, unspecified Category: Medical (2) Hypertension Status: Acute Code(s): I10 - Essential (primary) hypertension Category: Me dical (3) Hypercholesterolemia Status: Acute Code(s): E78.00 - Pure hypercholesterolemia, unspecified Category: Medical (4) History of neuropathy Status: Acute Code(s): Z86.69 - Personal history of other diseases of the nervous system and sense organs Category: Medical (5) Vomiting Status: Acute Code(s): R11.10 - Vomiting, unspecified Category: Medical
== END 2018-06-02 14:37 | disposition home or self-care (01) ==
LOC: ER 09:04 → MED/SURG 09:04
PROVIDERS: ADMIT Internal Medicine; ATTEND Internal Medicine

== ENCOUNTER 2018-06-08 07:39 | Observation (INO) ==
[2018-06-08] MEDS ORDERED: Sodium Chloride 0.9% 1,000 ML PRIMARY IV ONE (08:24)
[2018-06-08] MEDS ORDERED: ONDANSETRON 4 MG/2 ML VIAL IVP ONE (08:24)
[2018-06-08] MEDS ORDERED: ONDANSETRON 4 MG/2 ML VIAL ONE (08:27)
--- NOTE | 2018-06-08 08:29 | EKG ---
[address] [address] Measurements Intervals [place] Rate: 68 P: 74 TX: 152 QRS: 18 QRSD: 94 T: 59 QT: 392 QTc: 410 Interpretive Statements SINUS RHYTHM Compared to ECG 06/01/2018 09:52:22 No significant changes Electronically Signed On 06-09-18 10:12:05 MDT by Dru Leslie [id number]
[2018-06-08 08:50] LABS: VENOUS PH 7.38 (7.32-7.42)
[2018-06-08 08:51] LABS: BASOPHILS # (AUTO) 0.02 10*3/UL; BASOPHILS % (AUTO) 0.3 % (0-1); EOSINOPHILS # (AUTO) 0.18 10*3/UL; Hematocrit [HCT] 43.6 % (37.0-47.0); Hemoglobin [HGB] 14.4 g/dL (12.0-16.0); LYMPHOCYTES # (AUTO) 1.37 10*3/uL; MEAN CORPUSCULAR HEMOGLOBIN 34.4 PG (27-31); MEAN CORPUSCULAR VOLUME 104.3 FL (81-99); MEAN PLATELET VOLUME 9.2 FL (7.4-12.2); MONOCYTES # (AUTO) 0.43 10*3/UL (0.3-0.8); MONOCYTES % (AUTO) 7.3 % (5-15); NEUTROPHILS # (AUTO) 3.91 10*3/UL; RED BLOOD COUNT 4.18 10^6/uL (4.20-5.40)
[2018-06-08 08:53] LABS: PLATELET MORPHOLOGY COMMENT NORMAL MORPHOLOGY (NORM); RBC MORPHOLOGY COMMENT NORMAL MORPHOLOGY (NORM); WBC MORPHOLOGY COMMENT NORMAL MORPHOLOGY (NORM)
--- NOTE | 2018-06-08 08:54 | PDOC ---
General Adult HPI - General Chief Complaint: Altered Mental Status Stated Complaint: confusion and vomiting Date Seen by Provider: 06/08/18 Time Seen by Provider: 07:55 Source: POSITIVE: Patient, Spouse, EMS Exam Limitations: POSITIVE: No limitations Nurse's Notes Reviewed & Considered: Yes EMS Report Reviewed & Considered: Verbal - History of Present Illness Initial Comment: The patient is a 73 year old female who is brought to the emergency room by ambulance. The ambulance was called by the patient's , with whom the patient lives. Paramedics report that on their arrival the patient was having some vomiting. Paramedics report that "there was a bowl full of pills" in her house. reports that the patient has had some vomiting for the past 3-4 days. states that the patient became confused yesterday. reports that the patient would complain of pain to her arms, even to light touch". also reports that the patient complained of "her tongue going around and around and in and out". Patient had an esophageal dilation last week. Patient was seen in the emergency room with. He similar symptoms on June 01. Patient was admitted to the hospital on that date. In the emergency room and as an inpatient on that admission the patient had a spinal tap, which was normal and review of that study indicates that the meningitis/encephalitis PCR panel was normal. No organisms were seen and there were no white blood cells. There was no growth after [address] scan of the head and subsequent MRI of the brain was read as normal. CT scan of the abdomen and chest were also normal. Urine toxicology screen done on that visit was positive for opiates. A ccording to our computer records of her medication she is on simvastatin, [place] Pro, Compazine, Zofran, metoprolol, magnesium, lorazepam, gabapentin, severe, famotidine, cyanocobalamin and aspirin. When the patient's pharmacy opens up at 9 AM we will contact them to get an updated medication list. Patient has a history of chronic back and neck pain. History of hypertension and GERD dysphasia and arthritis. No known allergies according to our records. Patient is a nonsmoker and does not drink alcohol. Have you received a tetanus shot in the past 10 years?: Unknown Body Location Affected: REPORTS: Head (Complains of headache), Abdomen (Vomiting), Other (Confusion) Timing: REPORTS: Gradual Duration: >24 hours Severity: Moderate Quality: REPORTS: "Pain" (Patient complains of headache and "cold feet) Context: REPORTS: Other (As above) Modifying Factors: improves with: Vomiting Similar Symptoms Previously: Yes (admitted for similar episode 01 June) Recent Care Received: REPORTS: Recently Seen, Treated by MD, Hospitalized (As above) Any Prior Injuries Related to Current Complaint?: No - Patient Home Medications Home Medications: Home Medications Metoprolol Succinate 200 mg PO HS 05/23/11 Ramipril [ALTACE] 10 mg PO HS 05/23/11 Simvastatin 40 mg PO HS 05/23/11 Aspirin [Aspir 81] 81 mg PO DAILY 10/13/13 Cholecalciferol (Vitamin D3) [Vitamin D] 1,000 unit PO DAILY 10/13/13 Folic Acid 3,200 mg PO DAILY 10/13/13 Gabapentin [Neurontin] 400 mg PO TID 10/13/13 Ondansetron [Zofran Odt] 1 tab-cap PO q6-8 PRN #20 tab 09/01/15 Cyanocobalamin Inj [Vitamin B-12 Inj] 1,000 mcg IM MONTHLY 08/22/16 Lorazepam [Ativan] 0.5 mg PO TID PRN 08/22/16 Magnesium 250 mg PO DAILY 08/22/16 Famotidine [Pepcid] 20 mg PO DAILY #90 tab 05/25/18 Prochlorperazine Maleate [Compazine] 10 mg PO BID 06/01/18 - Patient Allergies Allergies/Adverse Reactions: Allergies Allergy/AdvReac Type Severity Reaction Status Date / Time azithromycin Allergy NOT Verified 05/24/18 08:50 APPLICABLE pregabalin [From Lyrica] AdvReac NOT Verified 05/24/18 08:50 APPLICABLE Past Medical History - heen HEENT History: Denies History, Dentures/Partials Additional HEENT History: upper dentures Cardiovascular History: Hypertension, Hyperlipidemia Respiratory History: Denies History Gastrointestinal History: GERD Additional Gastrointestinal History: DYSPHAGIA Genitourinary History: Denies History Endocrine History: Denies History Musculoskeletal History: Arthritis, Osteoporosis, Back Pain Prosthesis or Implant: Yes (left wrist) Additional Musculoskeletal History: OF 03/14/12 PT HAS HAD 8 EPIDURALS FOR BULGING DISCS L5-S1, RHIZOTOMY, NERVE BLOCK. LEFT KNEE PAIN Neurological History: Denies History Blood Disorders: Denies History Psychiatric History: Denies History History of Sexually Transmitted Diseases: No Cancer History: Skin History of MDRO: No History of Other Communicable Diseases: No Alcohol Use: None In the Past 12 Months, Have Used or Abuse Any Substance: None Previous Surgical History: Yes Type / Date of Surgery: CHOLECYSTECTOMY, APPENDECTOMY, TONSILLECTOMY, x4, LEFT KNEE SCOPE/Rhizotomy and nerve block Anesthesia Reactions: No Malignant Hyperthermia: No Significant Family History: No pertinent family hx, Asthma, Heart disease, COPD, Diabetes, Hypertension Past Medical History Reviewed: Reviewed - No Changes ROS - Limitations ROS Limitations: Clinical Condition, Mental Impairment, Other (please comment) (Patient is confused and appears delirious. Patient cannot recall her age. When asked what her ages she states "I don't know; I'm 48". She is confused to the date and to the president. She is able hold to provide her name and knows that she is in the hospital. Patient has difficulty following simple instructions and her comprehension is limited.) Constitution: REPORTS: Other (Confusion) Cardiovascular: REPORTS: Denies Cardiac Symptoms Respiratory: REPORTS: Denies Resp Symptoms Neurological: REPORTS: Confusion Gastrointestinal: REPORTS: Nausea, Vomitting Endocrine: REPORTS: Denies Symptoms Musculoskeletal: REPORTS: Denies MS Symptoms Genitourinary: REPORTS: Denies Symptoms Eyes: REPORTS: Denies Symptoms ENT: REPORTS: Denies Symptoms Skin: REPORTS: Denies Skin Symptoms Lympathic: REPORTS: Denies Lympathic Symptoms Immunologic: POSITIVE: Denies Symptoms Psychiatric: POSITIVE: Confusion General Adult Exam - General Appearance General Appearance: POSITIVE: No Acute Distress, No Evidence of Trauma, Anxious, Uncooperative. NEGATIVE: Alert, Cooperative, Cervical Spine Protection, Lethargic, Mild Distress, Moderate Distress, Severe Distress, Spinal Immobilization, Unresponsive - HEENT HEENT: POSITIVE: Head Inspection Nml, Eyes Inspection Nml, Ears Inspection Nml, Nose Inspection Nml, Oral/Dental Inspect. Nml, Pharynx Inspect. Nml, PERRL, EOMI - Pupils Pupil Size: 4 mm: Bilateral (PERRLA) - Neck Neck: POSITIVE: Normal Inspection, Thyroid Normal - Respiratory Respiratory: POSITIVE: No Respiratory Distress, Breath Sounds Normal, Chest Non- Tender - Cardiovascular Cardiovascular: POSITIVE: Regular Rate & Rhythm, No Murmur, No Gallop, PMI Normal Peripheral Pulses: Radial (R): 2+, Radial (L): 2+ - Abdomen Abdomen: Soft: (All Quadrants), Normal Bowel Sounds: (All Quadrants), Denies Tenderness: (All Quadrants), No Splenomegaly: (All Quadrants), No Hepatomegaly: (All Quadrants), No Guarding: (All Quadrants), No Rebound: (All Quadrants), No Palpable Pulse: (All Quadrants), No Palpabale Mass: (All Quadrants), No Distention: (All Quadrants), No Rigidity: (All Quadrants) - Back Back: POSITIVE: Normal Inspection - Skin Skin: POSITIVE: Normal Color, Warm, Dry, No Rash - Extremities Extremity: Non-Tender: (All Extremities), Normal ROM: (All Extremities), Normal Inspection: (All Extremities) - Neurological / Psychological Neurological: POSITIVE: event executive Normal As Tested, Motor Normal, Sensation Normal, Disoriented To Time, Cognition Abnormality. NEGATIVE: Affect Apporpriate (Patient answers most questions inappropriately. She appears somewhat hyperactive.), Oriented X3 (Disoriented to time, her age, date and president), Disoriented To Person, Disoriented To Place, Weakness, Sensory Loss, Facial Droop, Speech Abnormality Reflexes: Patellar (R): 3+, Patellar (L): 3+ General Adult Progress - Results Reviewed by me Lab Results Reviewed by Me: Yes (labs ordered by me are all pending) EKG Interpreted/Reviewed By Me:: Yes (sinus rhythm, normal) EKG Interpretation:: POSITIVE: Normal Sinus Rhythm, Normal Rate, Normal Intervals, Normal [place], Normal QRS, Normal ST/T - Patient's Progress Pain Medication Addressed: POSITIVE: Not Applicable School/Work Release Addressed: POSITIVE: Not Applicable Re-Examine Time: 08:45 Re-Examine Comment: Blood and urine tests ordered and results are pending. Care is transferred to Dr. Barrientos, the emergency room physician who is presently on duty. IV was started and patient hydrated with normal saline. Patient had one episode of retching in the emergency room and Zofran 4 mg IV was ordered. Status: POSITIVE: Unchanged, Re-Examined Antibiotics Given: No - Consult Counseled: POSITIVE: Patient, Family () Patient Care Time - Estimated PCT Patient Care Time (In Minutes): 40 Vital Signs - Recent Vital Signs Vital Signs: Blood pressure 158/91, heart rate 67, respiratory rate 20, temperature 97.2F, oxygen saturation on room air 98%. - VS Reviewed Vital Signs Reviewed: Yes Discharge Clinical Impression: Confusion, Headache, Delirium, Vomiting Discharge Disposition: Other (Care transferred to Dr. Barrientos, emergency room physician who comes on duty at 0845) Condition: Fair Follow Up With: MERLYN WILSON [Primary Care Provider] - Care Transferred To: Dr. Barrientos,08
[2018-06-08 08:55] LABS: BILIRUBIN,URINE NEGATIVE (NEG); CLARITY,URINE CLEAR (CLEAR); COLOR,URINE YELLOW (Y); GLUCOSE, URINE (UA) NEGATIVE (NEG); OCCULT BLOOD,URINE NEGATIVE (NEG); PH,URINE 7.5 (5.0-8.5); PROTEIN,URINE 100 mg/dl (NEG); UROBILINOGEN,URINE 0.2 EU/dL (0.2)
[2018-06-08 09:03] LABS: RBC,URINE 0-2 /hpf; SQUAMOUS EPITHELIAL CELL,UR RARE; URINE SAMPLE TYPE CATH SPECIMEN; URINE SPECIFIC GRAVITY - MAN 1.014; WBC,URINE 0-2
[2018-06-08 09:04] LABS: BLOOD UREA NITROGEN 10 mg/dL (7-22); BUN/CREATININE RATIO 14.28 (6-20); SERUM ALBUMIN 4.5 g/dL (3.5-4.8)
[2018-06-08 09:09] LABS: SALICYLATE < 1.0 mg/dl (0-20)
--- NOTE | 2018-06-08 09:09 | PDOC ---
Transfer of Care - Care Accepted Time Care Transferred: 08:45 Report from Transferring Physician Received: Yes MDM / ED Course: This is a well-developed, well-nourished, 73-year-old female, who comes in today with confusion, vomiting, and headache. Patient was seen in the emergency department on June 01 for very similar symptoms and had an extensive workup that included lumbar puncture, CT scan of head chest and abdomen as well as labs. She was diagnosed with confusion, headache, hypoxia, and tested positive for opiates. She was held in the hospital for 24 hours and then discharged when her mentation improved. MRI was obtained at that time and was a normal MRI. I have taken over care of this patient from Dr. Smooth Carcamo while awaiting results of laboratory findings. Patient's is at bedside and of note, she is his caregiver. EMS reports that patient had a bowl full of pills on her table and the is unsure of how when or what his takes. Home Medications: Home Medications Metoprolol Succinate 200 mg PO HS 05/23/11 Ramipril [ALTACE] 10 mg PO HS 05/23/11 Simvastatin 40 mg PO HS 05/23/11 Aspirin [Aspir 81] 81 mg PO DAILY 10/13/13 Cholecalciferol (Vitamin D3) [Vitamin D] 1,000 unit PO DAILY 10/13/13 Folic Acid 3,200 mg PO DAILY 10/13/13 Gabapentin [Neurontin] 400 mg PO TID 10/13/13 Ondansetron [Zofran Odt] 1 tab-cap PO Q4-6H PRN #20 tab 09/01/15 Magnesium 250 mg PO DAILY 08/22/16 Famotidine [Pepcid] 20 mg PO DAILY #90 tab 05/25/18 Prochlorperazine Maleate [Compazine] 10 mg PO BID 06/01/18 oxyCODONE/APAP 5/325 Tab [Percocet 5/325 Tab] 1 tab PO Q6H PRN 06/08/18 Allergies/Adverse Reactions: Allergies azithromycin Allergy (Verified 06/08/18 10:30) NOT APPLICABLE INSOMNIA pregabalin [From Lyrica] Adverse Reaction (Verified 06/08/18 10:30) NOT APPLICABLE INSOMNIA, "OUT OF IT" Vital Signs Reviewed: Yes Nurse's Notes Reviewed & Considered: Yes - Pending Patient Care Items Pending Patient Care Items: POSITIVE: Labs - Expected Patient Outcome Tentative Impression of Patient: Delirium, headache. Expected Disposition: POSITIVE: Admit Observation - Re-Evaluation of Patient Disposition of Patient: POSITIVE: Admitted Counseled: POSITIVE: Patient, Family, RE: Lab Results, RE: Radiology Results, RE: DX, RE: Need for F/U Pending Test Results Documented: Yes Clinical Impression Documented: Yes - Results Reviewed Lab Results Reviewed by Me: Yes Lab Results: Laboratory Results 06/08/18 06/08/18 06/08/18 08:10 08:10 08:10 WBC 5.93 RBC 4.18 L Hgb 14.4 Hct 43.6 MCV 104.3 H MCH 34.4 H MCHC 33.0 RDW Std Deviation 49.2 RDW Coeff of Juan 13.0 Plt Count 243 MPV 9.2 Immature Gran % (Auto) 0.3 Neut % (Auto) 66.0 Lymph % (Auto) 23.1 Johnson % (Auto) 7.3 Eos % (Auto) 3.0 Baso % (Auto) 0.3 Immature Gran # (Auto) 0.02 Neut # (Auto) 3.91 Lymph # (Auto) 1.37 [place] # (Auto) 0.43 Eos # (Auto) 0.18 Baso # (Auto) 0.02 WBC Morphology Comment Normal morphology Plt Morphology Comment Normal morphology RBC Morph Comment Normal morphology VBG pH VBG pCO2 VBG HCO3 VBG Base Excess Sodium 146 H Potassium 4.1 Chloride 106 Carbon Dioxide 25 Anion Gap 15 BUN 10 Creatinine 0.7 BUN/Creatinine Ratio 14.28 Glucose 108 Calculated Osmolality 301.0 H Lactic Acid Calcium 9.3 Magnesium 2.1 Total Bilirubin 0.7 AST 49 H ALT 35 Alkaline Phosphatase 65 Total Creatine Kinase 32 CK-MB (CK-2) Troponin I C-Reactive Protein 0.7 Total Protein 7.7 Albumin 4.5 Globulin 3.2 Albumin/Globulin Ratio 1.40 TSH Ur Collection Type Cath specimen Urine Color Yellow Urine Clarity Clear Urine pH 7.5 Ur Specific [place] 1.015 U Specif Grav (Refrac) 1.014 Urine Protein 100 A Urine Glucose (UA) Negative Urine Ketones Negative Urine Occult Blood Negative Urine Nitrate Negative Urine Bilirubin Negative Urine Urobilinogen 0.2 Ur Leukocyte Esterase Negative Urine RBC 0-2 Urine WBC 0-2 Ur Squamous Epith Cells Rare Ur Renal Epithelial Cell None Urine Crystals None Urine Bacteria None Urine Casts None Urine Mucus None Urine Trichomonas None Urine Yeast None Ur Culture Indicated? Culture not set Salicylates < 1.0 Urine Opiates Screen Positive H Ur Buprenorphine Negative Ur Oxycodone Screen Negative Urine Methadone Screen Negative Ur Propoxyphene Screen Negative Acetaminophen < 10.0 Barbiturate Screen Negative U Tricyclic Antidepress Negative Phencyclidine Screen Negative Amphetamines Screen Negative U Methamphetamines Scrn Negative Benzodiazepines Screen Negative Cocaine Screen Negative U Marijuana (THC) Screen Negative Serum Alcohol < 10 06/08/18 06/08/18 06/08/18 08:10 08:10 08:10 WBC RBC Hgb Hct MCV MCH MCHC RDW Std Deviation RDW Coeff of Juan Plt Count MPV Immature Gran % (Auto) Neut % (Auto) Lymph % (Auto) Johnson % (Auto) Eos % (Auto) Baso % (Auto) Immature Gran # (Auto) Neut # (Auto) Lymph # (Auto) [place] # (Auto) Eos # (Auto) Baso # (Auto) WBC Morphology Comment Plt Morphology Comment RBC Morph Comment VBG pH VBG pCO2 VBG HCO3 VBG Base Excess Sodium Potassium Chloride Carbon Dioxide Anion Gap BUN Creatinine BUN/Creatinine Ratio Glucose Calculated Osmolality Lactic Acid 2.6 H Calcium Magnesium Total Bilirubin AST ALT Alkaline Phosphatase Total Creatine Kinase CK-MB (CK-2) 0.41 Troponin I < 0.012 C-Reactive Protein Total Protein Albumin Globulin Albumin/Globulin Ratio TSH 1.58 Ur Collection Type Urine Color Urine Clarity Urine pH Ur Specific [place] U Specif Grav (Refrac) Urine Protein Urine Glucose (UA) Urine Ketones Urine Occult Blood Urine Nitrate Urine Bilirubin Urine Urobilinogen Ur Leukocyte Esterase Urine RBC Urine WBC Ur Squamous Epith Cells Ur Renal Epithelial Cell Urine Crystals Urine Bacteria Urine Casts Urine Mucus Urine Trichomonas Urine Yeast Ur Culture Indicated? Salicylates Urine Opiates Screen Ur Buprenorphine Ur Oxycodone Screen Urine Methadone Screen Ur Propoxyphene Screen Acetaminophen Barbiturate Screen U Tricyclic Antidepress Phencyclidine Screen Amphetamines Screen U Methamphetamines Scrn Benzodiazepines Screen Cocaine Screen U Marijuana (THC) Screen Serum Alcohol 06/08/18 08:41 WBC RBC Hgb Hct MCV MCH MCHC RDW Std Deviation RDW Coeff of Juan Plt Count MPV Immature Gran % (Auto) Neut % (Auto) Lymph % (Auto) [place] % (Auto) Eos % (Auto) Baso % (Auto) Immature Gran # (Auto) Neut # (Auto) Lymph # (Auto) [place] # (Auto) Eos # (Auto) Baso # (Auto) WBC Morphology Comment Plt Morphology Comment RBC Morph Comment VBG pH 7.38 VBG pCO2 44 L VBG HCO3 26 VBG Base Excess 1 Sodium Potassium Chloride Carbon Dioxide Anion Gap BUN Creatinine BUN/Creatinine Ratio Glucose Calculated Osmolality Lactic Acid Calcium Magnesium Total Bilirubin AST ALT Alkaline Phosphatase Total Creatine Kinase CK-MB (CK-2) Troponin I C-Reactive Protein Total Protein Albumin Globulin Albumin/Globulin Ratio TSH Ur Collection Type Urine Color Urine Clarity Urine pH Ur Specific [place] U Specif Grav (Refrac) Urine Protein Urine Glucose (UA) Urine Ketones Urine Occult Blood Urine Nitrate Urine Bilirubin Urine Urobilinogen Ur Leukocyte Esterase Urine RBC Urine WBC Ur Squamous Epith Cells Ur Renal Epithelial Cell Urine Crystals Urine Bacteria Urine Casts Urine Mucus Urine Trichomonas Urine Yeast Ur Culture Indicated? Salicylates Urine Opiates Screen Ur Buprenorphine Ur Oxycodone Screen Urine Methadone Screen Ur Propoxyphene Screen Acetaminophen Barbiturate Screen U Tricyclic Antidepress Phencyclidine Screen Amphetamines Screen U Methamphetamines Scrn Benzodiazepines Screen Cocaine Screen U Marijuana (THC) Screen Serum Alcohol EKG Interpreted/Reviewed By Me:: Yes (SR 68bpm) EKG Interpretation:: POSITIVE: Normal Sinus Rhythm - Consult Consult (If Yes, Name of Consulting MD & Time Called): Yes (Dr Rhodes) Patient Care Time - Estimated PCT Patient Care Time (In Minutes): 20 Vital Signs - Recent Vital Signs Vital Signs: Vital Signs (Last 8 hours) Temp Pulse Resp BP Pulse Ox 06/08/18 07:40 97.2 F 67 20 158/91 98 - VS Reviewed Vital Signs Reviewed: Yes Discharge Clinical Impression: Confusion, Headache, Delirium, Vomiting Discharge Disposition: Admit to Inpatient Condition: Good Date Decision to Admit to Inpatient: 06/08/18 Time Decision to Admit to Inpatient: 09:21
[2018-06-08 09:10] LABS: AMPHETAMINE SCREEN NEGATIVE (NEG); CANNABINOID SCREEN,URINE NEGATIVE (NEG); COCAINE SCREEN NEGATIVE (NEG); METHADONE URINE SCREEN NEGATIVE (NEG); METHAMPHETAMINES SCREEN,URINE NEGATIVE (NEG); OPIATE SCREEN,URINE POSITIVE (NEG)
[2018-06-08] MEDS ORDERED: LIDOCAINE W/ SODIUM BICARB 0.5 ML SYR SUBD PRN (10:11)
[2018-06-08] MEDS ORDERED: CALCIUM CARBONATE 500 MG (TUMS) CHEWABLE TABLET PO PRN (10:11)
--- NOTE | 2018-06-08 10:18 | DI ---
CT HEAD SCAN WITHOUT IV CONTRAST, 06/08/2018 9:39 AM : Clinical History: Confusion. Previous Exam: 06/01/2018. Comparison is also made with the noncontrast MRI brain scan from 06/01/2018. Technique: Scanned from the foramen magnum to vertex without IV contrast. Sagittal and coronal reform atted images generated. Contrast Volume: None. 4th Ventricle: Normal. 3rd Ventricle: Mildly dilated, but normal for age. Lateral Ventricles: Mildly dilated, but normal for age. Sella: Normal size and normal pituitary gland. Cerebrum: Normal. No acute hemorrhagic or bland infarct noted. No small vessel ischemic disease. Cerebellum: Normal. No cerebellopontine angle mass. Normal cerebellar tonsillar position. Brainstem: Normal. Atrophy: Moderately severe cerebral and moderate cerebellar atrophy. Extracerebral Mantles/Midline Shift: No extracerebral mantle or dural lesion. No midline shift. Sinuses: Normal. Skull: Intact. READIN. No acute hemorrhagic or bland infarct. No significant small vessel ischemic disease. 2. Moderately severe cerebral and moderate cerebellar atrophy. 3. No significant interval change from the prior CT and MRI brain scans.
[2018-06-08] MEDS ORDERED: NALOXONE 0.4 MG/1 ML VIAL IVP PRN (10:52)
--- NOTE | 2018-06-08 11:00 | PDOC(PROG) ---
Interval History: This very nice 72-year-old female this is her second admission to the hospital this last week was her first one. Was brought to the ER for confusion does have a history of chronic low back pain Dr. Friedman is her primary care physician but in the past records she is also seen in urgent care in [place]. She did have esophageal dilatation according to old records Dr. Friedman gave her Toradol and baclofen. Also had an LP last admission was discharged home the next day her UA is positive for opioids. I did go through her medications and there is no opioids and it but the tells me he does take the opioids but he does not know if she took some out of his box they've been for 50 years is almost 79. Patient is more alert to person time and place but is unable to tell me any history of what she takes an Y she takes she has no chest pain nausea vomiting and otherwise feels great I believe she is much improved from the ER according to Dr. Barrientos Story she is now oriented Past Medical History Medical History: 1. History of hypertension. 2. History of hypercholesterolemia. 3. History of neuropathy. 4. History of chronic back pain. 5. History of esophageal stricture that needed dilatation recently Surgical History: 1. History of appendectomy. 2. History of hysterectomy. 3. History of cholecystectomy. 4. History of rhizotomy Past Social History: Used to smoke doesn't smoke anymore, doesn't drink known drugs. Lives with her . Tobacco Use: Former Smoker Objective : Data - Labs CBC and BMP: 06/08/18 08:10 06/08/18 08:10 Objective : Exam - General General Appearance: Cooperative - Head Head Exam: Normal Inspection, Normocephalic, Atraumatic - Eye Eye Exam: Normal Appearance, PERRL, EOMI, No Scleral Icterus - Neck Neck Exam: Normal Inspection, Full ROM, No Tenderness - Respiratory Respiratory Exam: Clear to Auscultation - Bilaterally, Breathing Non Labored, Normal To Percussion, Normal to Percussion and Palpation - Cardiovascular Cardiovascular Exam: RRR, No Murmur, No Clicks, No Gallops, No Rubs, PMI Non- Displaced - GI/Abdominal GI/Abdominal Exam: Normal Bowel Sounds, Non Tender, Non Distended, Soft, No Masses, No Hepatomegaly, No Splenomegaly, No Organomegaly - Extremities Extremities Exam: No Clubbing Present, No Edema Present, No Cyanosis Present Assessment and Plan - Patient Problems (1) Overuse of medication Current Visit: Yes Status: Acute Comment: Most likely a combination of her gabapentin also relaxer and opioids seen in the urine there is no opioids and her bag according to her but he does take them so he does not know if she got any from his back or pillbox pharmacy will go through his stuff. We will give her a low dose of Narcan 0.2. is in agreement as well as patient Code(s): Z91.14 - Patient's other noncompliance with medication regimen (2) Noncompliance with medication treatment due to overuse of medication Current Visit: Yes Status: Acute Comment: Consult social services manager PT OT Code(s): Z91.14 - Patient's other noncompliance with medication regimen (3) Confusion Current Visit: Yes Status: Acute Comment: Resolving start IV fluids Code(s): R41.0 - Disorientation, unspecified (4) Delirium Current Visit: Yes Status: Acute Code(s): R41.0 - Disorientation, unspecified
[2018-06-08] MEDS ORDERED: NALOXONE 0.4 MG/1 ML VIAL IVP ONE (11:11)
[2018-06-08] MEDS: D5-1/2NS + 20mEq KCL 1,000 ML PRIMARY IV SCH ×2 (11:18→19:04)
[2018-06-08] MEDS: HEPARIN 5000 UNIT/1 ML SUBCUT SCH ×2 (11:18→19:17)
[2018-06-08] MEDS: ASPIRIN EC 81 MG TABLET PO SCH (11:18)
[2018-06-08] MEDS: ONDANSETRON 4 MG/2 ML VIAL IVP PRN ×2 (14:13→21:07)
[2018-06-08] MEDS ORDERED: IBUPROFEN 800 MG TABLET PO ONE (17:53)
[2018-06-08] MEDS ORDERED: IBUPROFEN 800 MG TABLET PO PRN (18:09)
[2018-06-08] MEDS ORDERED: METOPROLOL SUCCINATE 100 MG SR 24H TABLET PO SCH (21:00)
[2018-06-08] MEDS ORDERED: RAMIPRIL 10 MG CAPSULE PO SCH (21:00)
[2018-06-09] MEDS: ONDANSETRON 4 MG/2 ML VIAL IVP PRN ×2 (00:56→07:58)
[2018-06-09] MEDS: D5-1/2NS + 20mEq KCL 1,000 ML PRIMARY IV SCH (02:27)
[2018-06-09] MEDS: HEPARIN 5000 UNIT/1 ML SUBCUT SCH ×2 (04:33→09:53)
[2018-06-09 05:44] LABS: BASOPHILS # (AUTO) 0.02 10*3/UL; BASOPHILS % (AUTO) 0.3 % (0-1); EOSINOPHILS # (AUTO) 0.15 10*3/UL; EOSINOPHILS % (AUTO) 2.5 % (0-8); Hematocrit [HCT] 40.9 % (37.0-47.0); Hemoglobin [HGB] 13.6 g/dL (12.0-16.0); LYMPHOCYTES # (AUTO) 2.14 10*3/uL; MEAN CORPUSCULAR HEMOGLOBIN 34.6 PG (27-31); MEAN CORPUSCULAR HGB CONC 33.3 g/dL (33-37); MEAN CORPUSCULAR VOLUME 104.1 FL (81-99); MEAN PLATELET VOLUME 9.7 FL (7.4-12.2); MONOCYTES # (AUTO) 0.54 10*3/UL (0.3-0.8); NEUTROPHILS # (AUTO) 3.11 10*3/UL; NEUTROPHILS % (AUTO) 52.2 % (50-80); RED BLOOD COUNT 3.93 10^6/uL (4.20-5.40)
[2018-06-09 06:00] LABS: BLOOD UREA NITROGEN 6 mg/dL (7-22); BUN/CREATININE RATIO 8.57 (6-20); PLATELET MORPHOLOGY COMMENT NORMAL MORPHOLOGY (NORM); RBC MORPHOLOGY COMMENT NORMAL MORPHOLOGY (NORM); SERUM ALBUMIN 4.1 g/dL (3.5-4.8); WBC MORPHOLOGY COMMENT NORMAL MORPHOLOGY (NORM)
[2018-06-09 08:37] VITALS: BP 151/56; RESP 20; TEMP 97.2; O2SAT 93
[2018-06-09] MEDS: ASPIRIN EC 81 MG TABLET PO SCH (09:53)
--- NOTE | 2018-06-09 11:34 | OT.PROG ---
Progress Note Progress Note: S: pt stated she needed to use the bathroom. O: tx consisted of functional ambulation with IV pole and CGA fro safety to toilet where pt completed toileting tasks and hygiene independently. pt then completed ADL task of hand washing with CGA for safety. pt completed bed mobility from EOB to supine with x2 VCs for positioning self in bed. A: pt tolerated session well. pt was slightly unsteady with ambulation this morning. P: continue POC
--- NOTE | 2018-06-09 12:19 | DCSUMMARY ---
Hospitalization Summary Admit Date: 06/08/2018 Discharge Date: 06/09/18 Primary Diagnosis:: altered mental status, resolved Secondary Diagnosis:: Polypharmacy, drug interactions, adverse reaction to medications Hospital Course: This very pleasant 73-year-old female who has had numbness and tingling in her lower extremities along with sharp back pains for some time. She stated to me that she's actually had 5 rhizotomies. She states that she's been trying to avoid any back surgeries because she saw her son have some bad experiences with them. The patient's history is that she became confused and altered and was brought in for evaluation yesterday. She was admitted with an altered mental state and suspicion of polypharmacy and adverse drug reactions. It was not clear if the patient was taking her medications or her 's or a combination of the 2. Be that as it may, the patient's mental status is normal today, she is alert and oriented to person, place, time, and situation. She has not hypoxic and has a room air saturation on my examination at 94%. She has no chest pain and no shortness of breath. She has no sign of infection. She has no fever. Given the improvement and resolution of her altered mental state, I think this is likely medication related. We went through of the side effects of the multiple medications she is on, and I cannot at least 5 medications possibly more, that have central nervous system side effects and interaction the brain. I think this is the problem the patient is facing. I recommended discontinuing baclofen, opiates, antiemetics, statin therapy, and I also recommended weaning down on the Neurontin and not stopping it abruptly but discontinuing it over the next month or so. I sent in a prescription for 100 mg 3 times a day and gave the patient a taper over the next few weeks. I was also careful to tell the patient that certainly the way she deals with her primary medications with her primary physician is up to her. However, I commonly see patients on multiple medications like this with altered mental status in the hospital. I discussed with her that this is a risk/benefit ratio with risk of altered mental status versus benefit of trying to figure out the underlying cause of the neuropathy. I recommended that she get an MRI scan of her back as this could be a disc herniation and on a remote MRI scan here in 2011, the patient had a bulging disc which could certainly be worse and could be the source of all of her symptoms. With the resolution of an altered mental state and resolution of the acute problem for hospitalization, I think that an MRI scan can be done on an outpatient basis and is best coordinated with her primary physician and so I recommended follow-up with that individual. Assessment and Plan: 1. As per discharge assessments noted 2. Disposition: Patient is discharged home. 3. Condition on discharge, stable and improved. 4. Diet: regular diet 5. Activities: resume normal activities 6. Follow-Up: 1. Dr. Wilson in 7 days 7. Medications at the Time of Discharge: Home Medications Medication Instructions Recorded Confirmed Metoprolol Succinate 200 mg PO HS 05/23/11 06/08/18 Ramipril [ALTACE] 10 mg PO HS 05/23/11 06/08/18 Aspirin [Aspir 81] 81 mg PO DAILY 10/13/13 06/08/18 Cholecalciferol (Vitamin D3) 1,000 unit PO DAILY 10/13/13 06/08/18 [Vitamin D] Folic Acid 3,200 mg PO DAILY 10/13/13 06/08/18 Famotidine [Pepcid] 20 mg PO DAILY #90 tab 05/25/18 06/08/18 Gabapentin [Neurontin] 100 mg PO TID #90 cap 06/09/18 Ibuprofen [Motrin] 800 mg PO Q8H PRN tab 06/09/18 8. Time, care, counseling and coordination of care for this discharge is greater than 30 minutes. This is an observation discharge. Exam - Vitals Vital Signs: Vital Signs Temperature 97.2 F Temperature Source Temporal Artery Scan Pulse Rate [Pulse Oximeter] 67 Pulse Rate 66 Respiratory Rate 20 Blood Pressure [Right Arm] 151/56 Blood Pressure [Left Arm] 188/74 Pulse Ox 93 Oxygen Flow Rate 1 Oxygen Delivery Method Nasal Cannula Height 5 ft 1 in Weight 147 lb 6.4 oz - General General Appearance: No Acute Distress, Cooperative - Eye Eye Exam: POSITIVE: No Scleral Icterus - ENT ENT Exam: POSITIVE: Mucous Membranes Moist - Respiratory Respiratory Exam: POSITIVE: Clear to Auscultation - Bilaterally, Breathing Non Labored - Cardiovascular Cardiovascular Exam: POSITIVE: RRR, No Murmur, No Clicks, No Gallops, No Rubs, No JVD - GI/Abdominal GI/Abdominal Exam: POSITIVE: Normal Bowel Sounds, Non Tender, Non Distended, Soft - Extremities Extremities Exam: POSITIVE: No Clubbing Present, No Edema Present, No Cyanosis Present - Neurological Neurological Exam: POSITIVE: Alert, Oriented x 3, No Facial Droop, Speech Intact / Clear, Moves All Extremities Equally Data Peritnent Studies: Laboratory Results 06/09/18 06/09/18 04:45 04:45 WBC 5.97 RBC 3.93 L Hgb 13.6 Hct 40.9 MCV 104.1 H MCH 34.6 H MCHC 33.3 RDW Std Deviation 49.5 RDW Coeff of Juan 13.1 Plt Count 266 MPV 9.7 Immature Gran % (Auto) 0.2 Neut % (Auto) 52.2 Lymph % (Auto) 35.8 [place] % (Auto) 9.0 Eos % (Auto) 2.5 Baso % (Auto) 0.3 Immature Gran # (Auto) 0.01 Neut # (Auto) 3.11 Lymph # (Auto) 2.14 [place] # (Auto) 0.54 Eos # (Auto) 0.15 Baso # (Auto) 0.02 WBC Morphology Comment Normal morphology Plt Morphology Comment Normal morphology RBC Morph Comment Normal morphology Sodium 145 Potassium 4.4 Chloride 108 Carbon Dioxide 23 Anion Gap 14 BUN 6 L Creatinine 0.7 BUN/Creatinine Ratio 8.57 Glucose 98 Calculated Osmolality 297.0 H Calcium 9.2 Total Bilirubin 0.8 AST 36 ALT 35 Alkaline Phosphatase 55 Total Protein 6.8 Albumin 4.1 Globulin 2.7 Albumin/Globulin Ratio 1.50 Procedures: [address] Medicine[address] [facility] [place] [address] PH: DD: [phone] FAX: [phone] ~DIAGNOSTIC IMAGING REPORT~ Patient: Oma Hurtado : 1945 Sex: F Age: 73 Exam Name: CT Head WO Contrast Exam Date: 06/08/18 Report # : [id number] CPT Code: 13864 EMR/MR #: [id number] Ordering: Devin Barrientos Admiting: OLIVE GRUBER MD. Primary: MERLYN WILSON MD Attending: OLIVE GRUBER MD. Signed CT HEAD SCAN WITHOUT IV CONTRAST, 06/08/2018 9:39 AM : Clinical History: Confusion. Previous Exam: 06/01/2018. Comparison is also made with the noncontrast MRI brain scan from 06/01/2018. Technique: Scanned from the foramen magnum to vertex without IV contrast. Sagittal and coronal reformatted images generated. Contrast Volume: None. 4th Ventricle: Normal. 3rd Ventricle: Mildly dilated, but normal for age. Lateral Ventricles: Mildly dilated, but normal for age. Sella: Normal size and normal pituitary gland. Cerebrum: Normal. No acute hemorrhagic or bland infarct noted. No small vessel ischemic disease. Cerebellum: Normal. No cerebellopontine angle mass. Normal cerebellar tonsillar position. Brainstem: Normal. Atrophy: Moderately severe cerebral and moderate cerebellar atrophy. Extracerebral Mantles/Midline Shift: No extracerebral mantle or dural lesion. No midline shift. Sinuses: Normal. Skull: Intact. READIN. No acute hemorrhagic or bland infarct. No significant small vessel ischemic disease. 2. Moderately severe cerebral and moderate cerebellar atrophy. 3. No significant interval change from the prior CT and MRI brain scans. Dictated By: 06/08/18 1009 MARICRUZ HARPER MD. Signed By: 06/08/18 1018 MARICRUZ HARPER MD. Patient Problems - Patient Problem List (1) Altered mental state Current Visit: Yes Status: Acute Code(s): R41.82 - Altered mental status, unspecified Qualifiers: Altered mental status type: transient alteration of awareness Qualified Code(s): R40.4 - Transient alteration of awareness Category: Medical (2) Adverse effects of medication Current Visit: Yes Status: Acute Code(s): T50.905A - Adverse effect of unspecified drugs, medicaments and biological substances, initial encounter Category: Medical (3) Polypharmacy Current Visit: Yes Status: Acute Code(s): Z79.899 - Other prison (current) drug therapy Category: Medical (4) Neuropathy Current Visit: Yes Status: Acute Code(s): G62.9 - Polyneuropathy, unspecified Category: Medical
--- NOTE | 2018-06-11 10:00 | OTI REPORT ---
Thank you for the referral of Oma Hurtado. She was seen on 06/08/18 for an occupational therapy inpatient evaluation secondary to weakness. SUBJECTIVE: The patient is a 73-year-old female. The patient reports that [place] outside of town with her here in [place]. The patient is confused and is a poor historian; however, the patient's is available at the time of the evaluation to provide information. He reports that at about 4:30 this morning she started to scream. They sleep in separate bedrooms. The patient was very confused and reported she was unable to move. They did call the ambulance. The patient has also been nauseous on and off all day today with vomiting. The patient has a history of low back pain. They have a son who is currently in the [facility] but he lives out by [place]. They also have a daughter who is flying in from [place] and one who lives in [place]. At prior level of function, the patient was taking care of her in terms of monitoring his health. He has a history of cancer. The patient's reports that a couple of days ago she was taking his pulse ox and was unable to determine what the numbers meant; she was very confused. They do have a nurse come in on Tuesdays to check her 's vitals. At prior level of function the patient was independent in all ADL tasks to include showering and dressing upper and lower extremities. The patient did not ambulate with use of an assistive device and was able to perform all cooking and cleaning tasks independently. PAST MEDICAL HISTORY: Past medical history can be found in the patient's medical record. OBJECTIVE FINDINGS: General observations: The patient is very confused. She has difficulty following one step verbal commands and is not oriented to date, year, or day. She was oriented to person. Range of motion: The patient demonstrates upper extremity range of motion within functional limits for bilateral shoulders, elbows, hands, and wrists. Strength: Upper extremity strength is 4+/5 bilaterally. Bed mobility: We attempted to sit edge of bed; however, the patient did refuse as she reports she is nauseous. She is currently hooked up to an IV and nursing staff reports that the patient is here secondary to taking a "bowl of pills" this morning. Ambulation: The patient's nurse does report that the patient was up and ambulated to the bathroom twice today with a very unsteady gait. The patient did refuse to ambulate at the time of evaluation. ASSESSMENT: The patient is very confused and may benefit from further cognitive testing before discharge to home, depending on what nursing determines. Problem List: Confusion Decreased ability to complete ADLs Decreased upper extremity strength Unsteadiness Short-Term Goals: To be met by discharge from inpatient: Patient will demonstrate the ability to complete all functional transfers safely without use of an assistive device while following verbal commands. Patient will increase bilateral upper extremity strength by one manual muscle grade. Patient will complete upper and lower extremity dressing tasks independently including set up. Patient will complete a showering task independently to include set up. Patient will participate in cognitive screening and/or testing depending on her level of confusion as she progresses with her inpatient stay. Long-Term Goals: To be met following discharge from inpatient: Patient will return home to prior level of function in terms of ADL task performance. TREATMENT PLAN: Patient will be seen B.I.D during the week and one time per day over the weekend as an inpatient to address the above goals and objectives. INITIAL TREATMENT: Treatment today consisted of the initial evaluation only. [id number]
== END 2018-06-09 12:54 | disposition home or self-care (01) ==
LOC: MED/SURG 07:39 → ER 07:39 → MED/SURG 10:07
PROVIDERS: ADMIT Internal Medicine; ATTEND Internal Medicine